=== PATIENT | male | born 1965 | race Caucasian/White ===

== ENCOUNTER 2017-11-08 06:05 | Inpatient (IN) | payer OTHER ==
[2017-11-03 11:08] VITALS: BMI 39.3
[2017-11-08] MEDS ORDERED: CEFAZOLIN 2 GM/D5W 2 GM/50 ML ML IVPB ONE (06:40)
[2017-11-08] MEDS ORDERED: oxyCODONE HCL 10 MG SUSTAINED ACTING TABLET PO STA (06:40)
[2017-11-08] MEDS ORDERED: oxyCODONE HCL 10 MG SUSTAINED ACTING TABLET ONE (06:49)
[2017-11-08] MEDS ORDERED: MIDAZOLAM HCL 2 MG/2 ML SINGLE DOSE VIAL ONE (07:06)
[2017-11-08] MEDS ORDERED: BUPIVACAINE HCL/PF (5 MG/ML) 30 ML VIAL IJ ONE (07:06)
[2017-11-08] MEDS ORDERED: BUPIVACAINE LIPOSOME/PF (EXPAREL) 266 MG/20 ML VIAL ONE (07:06)
[2017-11-08] MEDS ORDERED: THROMBIN (BOVINE) 5,000 UNIT VIAL TP ONE ×2 (07:09→08:33)
[2017-11-08] MEDS ORDERED: LIDOCAINE 1%/EPI 1:100000 (20 ML MULTI DOSE VIAL) ONE (07:09)
[2017-11-08] MEDS ORDERED: GUM MASTIC/STORAX/MSAL/ALCOHOL 1 DRP DROPSBTL MC ONE (07:10)
--- NOTE | 2017-11-08 07:26 | HP ---
History & Physical Update - History History: No Change - Physical Physical: No Change - Assessment Assessment: No Change - Plan Plan: No Change (H&P in chart from 11/05/2017)
[2017-11-08] MEDS ORDERED: LIDOCAINE 1%/EPI 1:100000 (50 ML MULTI DOSE VIAL) INF ONE (07:30)
[2017-11-08] MEDS ORDERED: PROPOFOL 20 ML ONE ×2 (07:58)
[2017-11-08] MEDS ORDERED: ceFAZolin SODIUM 1 GM VIAL ONE (07:58)
[2017-11-08] MEDS ORDERED: DEXAMETHASONE SOD PHOSPHATE 4 MG/1 ML VIAL ONE (07:58)
[2017-11-08] MEDS ORDERED: ONDANSETRON 4 MG/2 ML VIAL ONE (07:58)
[2017-11-08] MEDS ORDERED: GELATIN SPONGE,ABSORBABLE 1 GM PACKET TP ONE (08:34)
[2017-11-08] MEDS ORDERED: methylPREDNISolone ACET (DEPO) 40 MG/1 ML VIAL IM ONE (10:00)
[2017-11-08] MEDS ORDERED: oxyCODONE HCL 5 MG TABLET PO PRN (10:16)
[2017-11-08] MEDS ORDERED: ONDANSETRON 4 MG/2 ML VIAL IVPUSH PRN (10:19)
[2017-11-08] MEDS ORDERED: MECLIZINE HCL 25 MG TABLET (FP) PO PRN ×2 (10:22→10:25)
--- NOTE | 2017-11-08 10:28 | OP ---
Operative Note - Note: Operative Date: 11/08/17 Pre-Operative Diagnosis: L5-S1 spondylolisthesis Operation: posterior lumbar decompression/fusion/instrumentation, transformanial interbody fusion of L5-S1 with allograft and neuromonitoring Surgeon: Justin Francis Pot Annealer: Conchita Gibson Anesthesiologist/VICE PRESIDENT OF TALENT MANAGEMENT: Enriqueta Pascual Anesthesia: Spinal Estimated Blood Loss (mls): 50 Fluid Volume Replaced (mls): 1,000 Operative Report Dictated: Yes
--- NOTE | 2017-11-08 10:29 | SURG ---
Surgery Laundry Pricing Clerk Note Laundry Pricing Clerk: Conchita Gibson PA-C Date of Service: 11/08/17 Diagnosis: L5-S1 spondylolisthesis Procedure: posterior lumbar decompression/fusion/instrumentation, transformanial interbody fusion of L5-S1 with allograft and neuromonitoring I was present for the entirety of the operative procedure. For further detail, please refer to operative report. Visit type - Case Type Case Type: Scheduled - Emergency Emergency Visit: No - New patient This patient is new to me today: Yes Date on this admission: 11/08/17
[2017-11-08] MEDS ORDERED: ACETAMINOPHEN 325 MG TABLET (FP) PO SCH (10:30)
[2017-11-08] MEDS ORDERED: LACTATED RINGERS SOLUTION 1,000 ML IV SCH ×2 (10:30)
[2017-11-08] MEDS: diazePAM 2 MG TABLET PO SCH (14:10)
[2017-11-08] MEDS: oxyCODONE HCL 5 MG TABLET PO PRN ×2 (15:15→21:08)
[2017-11-08] MEDS: CEFAZOLIN 1 GM/D5W 1 GM/50 ML BAG IVPB SCH (16:00)
[2017-11-08] MEDS: ACETAMINOPHEN 325 MG TABLET (FP) PO SCH (18:13)
[2017-11-08] MEDS: traMADol HCL 50 MG TABLET PO SCH (18:13)
[2017-11-08] MEDS: DOCUSATE SODIUM 100 MG CAPSULE (FP) PO SCH (21:09)
--- NOTE | 2017-11-08 21:11 | OP ---
DATE OF OPERATION: 11/08/2017 PREOPERATIVE DIAGNOSIS: Spinal stenosis, L5-S1. POSTOPERATIVE DIAGNOSIS: Spinal stenosis, L5-S1. PROCEDURE PERFORMED: 1. Transforaminal lumbar interbody fusion, L5-S1. 2. Placement of instrumentation, L5-S1. 3. Revisional laminectomy. 4. Insertion of cage. SURGEON: Justin Francis MD CLINICAL PROGRAM MANAGER: MATT Bass ESTIMATED BLOOD LOSS: 50 mL INTRAVENOUS FLUIDS: Per Anesthesia. ANESTHESIA: Spinal/TLIP. COMPLICATIONS: None. DISPOSITION: Patient brought to the PACU in stable condition. INDICATION FOR SURGERY: The patient is a 52-year-old gentleman who had previously undergone a laminectomy. He had done well from the surgery until recently when he began to have pain from his back down his leg. X-rays and MRI were completed which noted that he had a spinal stenosis at L5-S1. He had a re-herniation at that level. He had gone through an exhaustive course of treatment for this which included medications, physical therapy, as well as injections. Unfortunately, his pain continued to persist despite all this. At this point, risks, benefits, and alternatives were discussed, and the patient consented to surgery. DESCRIPTION OF PROCEDURE: Patient was brought to the operating room by the anesthesia staff. After appropriate patient identification was performed, spinal anesthesia was given along with a TLIP block. Patient was able to position himself prone onto the OR table with all areas of bony prominences well padded at this time. The C-arm was brought in. The L5 and S1 pedicles were marked off. Next, 10 mL of lidocaine with epinephrine were injected into his back. At this time, his back was prepped and draped in a sterile manner. At this point, timeout was completed. Incisions were made bilaterally over the L5 and S1 pedicles. Dissection was carried down to the fascia. The fascia was split at this time. Under C-arm guidance, trocars were advanced into both the L5 and S1 pedicles. Through the trocars, wires were inserted. Over the wires, tap was performed and screws inserted. On the left-hand side, retractor blades were set up to expose the L5-S1 facet joint. This was confirmed with x-ray. The facet joint was removed with a flo and osteotome. The disk was entered. Using a series of pituitaries, Kerrisons, and curettes, the diskectomy was completed. Endplates were decorticated at this time. Bone graft was placed in. A cage filled with bone graft was placed in. Tulip pads were placed over the screws. Bj was measured and placed in. Caps were placed on. Compression and final tightening were performed. On the right-hand side, a bj was measured and placed in. Caps were placed on. Compression and final tightening were performed. All x-ray instrumentation was removed at this time. AP and lateral x-rays confirmed the instrumentation to be in good position. The fascia was closed with a No. 1 Vicryl suture. The subcutaneous tissue was closed with 2-0 Vicryl suture. Skin was closed with 3-0 Monocryl suture. Dermabond was applied. Steri-Strips were applied. A sterile dressing was applied. Patient was placed supine on the OR bed and brought to the PACU in stable condition. Gerson VITALE/[id number]
[2017-11-09] MEDS: traMADol HCL 50 MG TABLET PO SCH ×3 (00:14→12:33)
[2017-11-09] MEDS: ACETAMINOPHEN 325 MG TABLET (FP) PO SCH ×3 (00:14→12:33)
[2017-11-09] MEDS: CEFAZOLIN 1 GM/D5W 1 GM/50 ML BAG IVPB SCH (00:15)
[2017-11-09] MEDS: ONDANSETRON 4 MG/2 ML VIAL IVPUSH SCH ×3 (00:15→12:33)
[2017-11-09] MEDS: diazePAM 2 MG TABLET PO SCH (02:25)
[2017-11-09 06:49] VITALS: BP 118/73; PULSE 93; TEMP 97.8
--- NOTE | 2017-11-09 07:50 | DS ---
"Physical Exam: SUBJECTIVE: POD #1 L5-S1 decompression and fusion. Patient seen and examined at bedside with no complaints. Patient states he still has some b/l radicular pain in both legs but it is improved from his pre-op symptoms. He has been OOB to the bathroom and ambulating without assistance. He is tolerating his diet and denies any CP, SOB, N/V/D fever or chills OBJECTIVE: Vital Signs Period Temp Pulse Resp BP Sys/James Pulse Ox Last 24 Hr 97.8 F-98.8 F 78-104 16-19 107-121/58-75 94-100 PHYSICAL EXAM GENERAL: The patient is awake, alert, and fully oriented, in no acute distress. HEAD: Normal with no signs of trauma. EYES: sclera anicteric, conjunctiva clear. NECK: Trachea midline, LUNGS:Unlabored resp on RA, no wheezes, no crackles, no accessory muscle use. Lumbar spine: incisions c/d/i with steris in place, surrounding tissue intact with no tracking erythema, edema or collection. HEART: Regular rate and rhythm, S1, S2 without murmur, rub or gallop. EXTREMITIES: 2+ pulses, warm, well-perfused, no edema.with 5/5 strength on Dorsi /plantar flexion NEUROLOGICAL: Cranial nerves II through XII grossly intact. Normal speech, gait not observed. PSYCH: Normal mood, normal affect. SKIN: Warm, dry, normal turgor, no rashes or lesions noted. LABS HOSPITAL COURSE: Date of Admission:11/08/17 The patient was admitted to the Med-Surg Unit after decompression and fusion of L5-S1. Now, s/p L5-S1 fusion. The day of surgery, the patient ambulated the hallways with assistance. Narcotic and non-narcotic pain management control was achieved with an oral and IV approach. An xray was obtained and confirmed hardware placement at L5-S1, no fractures or dislocations. Mitra-operative IV ABX were administered. DVT prophylaxis was achieved with SCDs and early ambulation. The patient ambulated with Physical Therapy and no services were recommended upon discharge. Narcotic scripts and or muscle relaxants were checked with [place] [employer] prior to escibe. The discharge instructions and an oral pain management plan were reviewed with the patient. All questions answered. Above plan discussed with Dr. Francis and agreed. Date of Discharge: 11/09/17 Minutes to complete discharge: 25 Discharge Summary Condition: Good - Instructions Diet, Activity, Other Instructions: Regular diet as tolerated. No bending and or twisting at the waist. No lifting greater than 5 pounds. Follow-up with your surgeon in two weeks. Keep area clean and dry. May remove dressing in two (2) days and replace with clean gauze and occlusive dressing such as a tegaderm. NO BATHS. You may shower starting two (2) days after your surgery. When showering, leave the occlusive(plastic) dressing in place and change if it appears wet. Avoid direct water stream onto your incision. If you develop fever, drainage from your incision please call your surgeon. Follow-up Referred to following clinics/specialists for follow-up care: Justin Francis MD [facility]/[address], [place] [address] [phone] This report was requested by: Conchita Gibson | Reference #: [id number] Disposition: HOME - Home Medications Comprehensive Discharge Medication List: Ambulatory Orders Meclizine HCl 25 mg PO ASDIR PRN 11/03/17 Naproxen 500 mg PO DAILY PRN 11/03/17 Diazepam [Valium] 2 mg PO BID PRN #14 tablet MDD 2 11/08/17 Docusate Sodium [Colace -] 100 mg PO BID PRN #14 capsule 11/08/17 Hydrocodone/Acetaminophen [Vicodin 5-300 mg Tablet] 1 each PO Q4H PRN #30 tablet MDD 6 11/08/17 Problem List - Problems (1) Spondylolisthesis at L5-S1 level Assessment/Plan: POD #1 L5-S1 decompression and fusion doing well. 1) OOB as tolerated 2) DVT propylaxis 3) daily IS 4) d/c for home later today. 5) follow up with Dr Francis as scheduled Evaluation and plan discussed with Dr Francis Code(s): M43.17 - SPONDYLOLISTHESIS, LUMBOSACRAL REGION This patient is new to me today: Yes Date on this admission: 11/09/17 Emergency Visit: No Critical Care patient: No - Discharge Referral Referred to [facility] Med P.C.: No"
[2017-11-09 08:25] LABS: ANION GAP 5 (8-16); BLOOD UREA NITROGEN 12 mg/dl (7-18); CALCIUM 7.9 mg/dl (8.4-10.2); CHLORIDE 105 mmol/L (98-107); CO2 24 mmol/L (22-28); CREATININE 0.8 mg/dl (0.6-1.3); GLUCOSE,RANDOM 135 mg/dl (74-106); SODIUM 134 mmol/L (136-145)
[2017-11-09 08:28] LABS: HEMATOCRIT 35.1 % (35.4-49); HEMOGLOBIN 12.1 GM/dl (11.7-16.9); MCH 31.2 pg (25.7-33.7); MCHC 34.6 g/dl (32.0-35.9); MEAN CELL VOLUME 90.3 fl (80-96); MEAN PLT VOLUME 8.5 fl (7.5-11.1); PLATELET COUNT 210 K/MM3 (134-434); RBC 3.89 M/mm3 (4.00-5.60); RDW 12.3 % (11.9-15.9); WHITE BLOOD COUNT 12.6 K/mm3 (4.0-10.8)
[2017-11-09] MEDS: DOCUSATE SODIUM 100 MG CAPSULE (FP) PO SCH (10:05)
--- NOTE | 2017-11-09 10:05 | PN ---
Progress Note (short form) - Note Progress Note: 52M POD1 s/p L5-S1 POD1 under spinal anesthetic with b/l TLIPs. Pt doing well, states that pain is well controlled, and denies any anesthetic complications. AVSS. Motor and sensory function at baseline in bilateral lower extremities. Continue current regimen.
== END 2017-11-09 14:10 | disposition home or self-care (01) | DRG 304 ==
LOC: FM/S 06:05 → EDSTATUS 13:00
PROVIDERS: ADMIT Orthopaedic Surgery Orthopaedic Surgery of the Spine; ATTEND Orthopaedic Surgery Orthopaedic Surgery of the Spine
PROC: 4A10X4G Monitoring of Central Nervous Electrical Activity, Intraoperative, External Approach (ICD-10-PCS; 2017-11-08)
PROC: 0SG30AJ Fusion of Lumbosacral Joint with Interbody Fusion Device, Posterior Approach, Anterior Column, Open Approach (ICD-10-PCS; principal; 2017-11-08 07:30)
DX: M48.07 Spinal stenosis, lumbosacral region (principal)
CPT/HCPCS: 36415; 72100-TC-FY; 80048; 85027; 94760; 97116-GP; 97161-GP

== ENCOUNTER 2017-11-13 10:45 | Emergency (ER) | payer OTHER ==
[2017-11-13] MEDS ORDERED: diazePAM 2 MG TABLET PO ONE (10:57)
[2017-11-13] MEDS ORDERED: DOCUSATE SODIUM 100 MG CAPSULE (FP) PO ONE ×2 (10:57→11:04)
[2017-11-13] MEDS ORDERED: oxyCODONE HCL 5 MG TABLET PO ONE (10:57)
[2017-11-13 11:01] VITALS: BP 116/61; PULSE 96; TEMP 98.9; BMI 41.3
[2017-11-13] MEDS ORDERED: diazePAM 2 MG TABLET ONE (11:05)
--- NOTE | 2017-11-13 11:08 | PDOC ---
History of Present Illness - General Chief Complaint: Pain Stated Complaint: LEFT LEG PAIN Time Seen by Provider: 11/13/17 10:48 History Source: Patient, Family - History of Present Illness Initial Comments: 11/13/17 11:00 52yoM POD5 s/p spinal surgery presents w/ severe pain. Pt was DC'ed 11/10 and since then has had increasing pain requiremetns at home. Initially on vicodin 5/ 300mg 1 tab, now up to 2 tabs q4h. His pharmacy is refusing to fill more Rx sent by his surgeon because he used up the initial Rx too quickly. (Taking approx 4G APAP daily at current rate, 27 tabs over 48h). Also on diazepam at home. Prior to surgery,pt's pain was well controlled on Aleve. Pt advised no NSAIDs after surgery. no numbness/tingling to leg/perineum no bowel/bladder incontinence or retnetion no fevers no bleeding on dressing no localized surgical site pain, pain is all radicular down L leg. Past History - Past Medical History Allergies/Adverse Reactions: Allergies Allergy/AdvReac Type Severity Reaction Status Date / Time No Known Drug Allergies Allergy Verified 11/13/17 10:50 Home Medications: Ambulatory Orders Diazepam [Valium] 2 mg PO BID PRN #14 tablet MDD 2 11/08/17 Hydrocodone/Acetaminophen [Vicodin 5-300 mg Tablet] 1 each PO Q4H PRN #30 tablet MDD 6 11/08/17 Docusate Sodium [Colace -] 100 mg PO BID PRN #0 capsule 11/09/17 Meclizine HCl [Antivert -] 25 mg PO BID PRN tablet 11/09/17 Anemia: No Asthma: No Cancer: No Cardiac Disorders: No CVA: No COPD: No CHF: No Dementia: No Diabetes: No GI Disorders: No Disorders: No HTN: No Hypercholesterolemia: Yes (NOT ON MEDS) Liver Disease: No Seizures: No Thyroid Disease: No - Surgical History Abdominal Surgery: No Appendectomy: No Cardiac Surgery: No Cholecystectomy: No Lung Surgery: No Neurologic Surgery: No Orthopedic Surgery: Yes (LUMBAR LAMINECTOMY 2011) - Suicide/Smoking/Psychosocial Hx Smoking History: Never smoked Have you smoked in the past 12 months: No Hx Alcohol Use: Yes (SOCIALLY) Drug/Substance Use Hx: No Substance Use Type: Alcohol Hx Substance Use Treatment: No Review of Systems - Review of Systems All Other Systems: Reviewed and Negative *Physical Exam - Physical Exam Comments: 11/13/17 11:03 seated in wheelchair NAD, well appearing FROM toes/ankles b/l no swelling to leg, no ecchymosis to leg dressing c/d/i.Inicision w/ small amount of dried blood, clean, intact, steristrips still in place, no erythem, no fluctuanc, no purulence. neuro grossly intact, LL limited by pain A&O x 3. ED Treatment Course - Consult/PCP Case Discussed with Personal Care Physician Not on Staff:: Spoke w/ coverage for Dr. Francis. He will rx Percocet 10/325 to pharmacy to increase opiate component and maintain safe tylenol levels. Also OK to resume naproxen at home as pt is POD 6. Will follow closely as an outpatient. Medical Decision Making - Medical Decision Making 11/13/17 11:08 52yoM pOD5 s/p spinal surgery presnets w/ difficult to control radicular pain down L leg (same as pre-surgery) and pharmacy refusing to refill vicodin Rx likely 2/2 APAP content. - pain control w/ oxycodone and diazepam - discuss w/ Dr. Tito andrews DC w/ new Rx. 11/13/17 12:17 Pt feeling much better after oxy/toradol/valium. DC home, new Rx sent by or, continue to f/u w/ ortho as scheduled. *DC/Admit/Observation/Transfer Diagnosis at time of Disposition: Pain, Spondylolisthesis at L5-S1 level - Discharge Dispostion Disposition: HOME - Referrals - Patient Instructions Additional Instructions: Follow-up with your surgeon on thursday 11/16 as scheduled. Your medicationsd have been changed. Please STOP vicodin. Please START percocet 10/325mg tabs 1 tab every 4 hours. You may increase if neccessary after talking to your surgeon. Please START Aleve 2 tabs every 12 hours Continue diazepam as needed as previously prescribed. Return to ER for fever over 100.4, numbness or tingling to groin, loss of control over stool or urine. - Post Discharge Activity
[2017-11-13] MEDS ORDERED: KETOROLAC TROMETHAMINE 30 MG/1 ML VIAL IM ONE (11:17)
[2017-11-13] MEDS ORDERED: KETOROLAC TROMETHAMINE 30 MG/1 ML VIAL ONE (11:23)
== END 2017-11-13 13:10 | disposition home or self-care (01) ==
LOC: FER 10:45
PROC: 3E0233Z Introduction of Anti-inflammatory into Muscle, Percutaneous Approach (ICD-10-PCS; principal; 2017-11-13)
DX: M43.16 Spondylolisthesis, lumbar region (principal)
CPT/HCPCS: 99282-25

== ENCOUNTER 2017-11-22 21:23 | Inpatient (IN) | payer OTHER ==
--- NOTE | 2017-11-22 21:29 | PDOC ---
History of Present Illness - General History Source: Patient Exam Limitations: No Limitations - History of Present Illness Initial Comments: 11/22/17 22:39 The patient is 52 a year old male, with a significant PMH of hypercholesterolemia, who presents to the emergency department with s/p spinal fusion surgery of his lumbar spine approximately 2 weeks ago. The patient complains of back pain, fevers and chills that began today around 2 pm today. The patient states mild back pain relief after taking oxycodone but still has fevers and chill. He also mentions a decrease in appetite. The patient denies chest pain, shortness of breath, headache and dizziness. Denies nausea, vomit, diarrhea and constipation. Denies dysuria, frequency, urgency and hematuria. PAST MEDICAL HISTORY: Hypercholesterolemia PAST SURGICAL HISTORY: Lumbar laminectomy 2012 FAMILY HISTORY: no pertinent history SOCIAL HISTORY: Drinks alcohol socially but denies tobacco and alcohol use. MEDICATIONS: reviewed ALLERGIES: As per nursing notes Adult ROS General: +Fevers or chills. No weakness, no weight loss HEENT: No change in vision. No sore throat,. No ear pain CardioVascular: No chest pain or shortness of breath Respiratory:No cough, or wheezing. Gastrointestinal: no nausea, vomiting, diarrhea or constipation, No rectal bleeding Genitourinary: No dysuria, hematuria, or frequency Musculoskeletal: +Back pain Neurologic: No headache, vertigo, dizziness or loss of consciousness Psychiatric: nor depression Skin: No rashes or easy bruising Endocrine: no increased thirst or abnormal weight change Allergic: no skin or latex allergy All other systems reviewed and normal Adult Exam: General: Well-nourished well-developed individual, no acute distress HEENT: Throat: Normal, tonsils normal, no erythema or exudate Neck: Supple, no meningeal signs, no lymphadenopathy Eyes::Pupils equal reactive and round, extraocular motion intact Chest: Nontender to palpation Cardiac: S1-S2 normal, regular rate and rhythm, no murmurs rubs or gallops Respiratory: Lungs clear to auscultation bilateral Abdomen: Soft, nondistended, normal bowel sounds, nontender to palpation diffusely Back: +Paraspinal incision bilaterally. No evidence of dehiscence or discharge. Increase warmth and erythematous tenderness to palpation Extremities: Warm, dry, no cyanosis, clubbing, or edema Skin: +Increase warmth and erythematous to the back. Neuro: Alert and oriented x3, nonfocal exam, grossly intact, normal gait Psych: Normal mood and affect <Kristen Cunningham - Last Filed: 11/22/17 23:30> - General History Source: Patient Exam Limitations: No Limitations - History of Present Illness Initial Comments: 11/22/17 22:09 This is a 52-year-old male status post spinal fusion surgery of his lumbar spine approximately 2 weeks ago. Patient now comes in complaining of increased pain in the area and some fever and chills. On my exam he did have erythema with increased tenderness and warmth to the area. Sepsis protocol was initiated. And in addition to sepsis workup patient will also have a CT scan of the lumbar spine to rule out any collections 11/22/17 23:33 Patient's workup so shows a markedly elevated white count of 17,000 with a left shift. His CAT scan shows some fluid collection bilateral paraspinal area questionable abscess or infectious collection. Patient most likely will need an MRI to further define what that collection is. Patient will be admitted to an inpatient bed Antibiotics were started thank and Zosyn. Patient is hemodynamically stable Patient's neurosurgeon Dr. Francis was called at [phone]. The PA called back and discuss case with her.. Patient will be admitted to an inpatient bed under the hospitalist service with Dr. Taylor consultation 11/23/17 00:01 <Madelyn George I - Last Filed: 11/23/17 00:02> - General Chief Complaint: Pain, Acute Stated Complaint: FEVER, PAIN POST SPINAL FUSION SURGERY Time Seen by Provider: 11/22/17 21:26 Past History <Kristen Cunningham - Last Filed: 11/22/17 23:30> - Past Medical History Anemia: No Asthma: No Cancer: No Cardiac Disorders: No CVA: No COPD: No CHF: No Dementia: No Diabetes: No GI Disorders: No Disorders: No HTN: No Hypercholesterolemia: Yes (NOT ON MEDS) Liver Disease: No Seizures: No Thyroid Disease: No - Surgical History Abdominal Surgery: No Appendectomy: No Cardiac Surgery: No Cholecystectomy: No Lung Surgery: No Neurologic Surgery: No Orthopedic Surgery: Yes (LUMBAR LAMINECTOMY 2011) - Suicide/Smoking/Psychosocial Hx Smoking History: Never smoked Have you smoked in the past 12 months: No Hx Alcohol Use: Yes (SOCIALLY) Drug/Substance Use Hx: No Substance Use Type: Alcohol Hx Substance Use Treatment: No <Madelyn George I - Last Filed: 11/23/17 00:02> - Past Medical History Allergies/Adverse Reactions: Allergies Allergy/AdvReac Type Severity Reaction Status Date / Time No Known Drug Allergies Allergy Verified 11/22/17 21:25 Home Medications: Ambulatory Orders Hydrocodone/Acetaminophen [Vicodin 5-300 mg Tablet] 1 each PO Q4H PRN #30 tablet MDD 6 11/08/17 *Physical Exam - Vital Signs Last Vital Signs Temp Pulse Resp BP Pulse Ox 102.9 F H 122 H 20 131/78 97 11/22/17 21:30 11/22/17 21:30 11/22/17 21:30 11/22/17 21:30 11/22/17 21:30 <Kristen Cunningham - Last Filed: 11/22/17 23:30> Heart Score/ECG Review - ECG Impressions Comment:: 11/22/17 23:30 Sinus tachycardia. Otherwise Normal. Vent rate 106 bpm IA interval 132 ms QTQTc 360/478 ms 11/22/17 23:31 Documentation prepared by Kristen Cunningham, acting as medical office worker for Madelyn George MD. <Kristen Cunningham - Last Filed: 11/22/17 23:30> ED Treatment Course - LABORATORY CBC & Chemistry Diagram: 11/22/17 22:25 11/22/17 22:25 - Medications Given in the ED: ED Medications Discontinued Medications Generic Name Dose Route Start Last Admin Trade Name Freq PRN Reason Stop Dose Admin Acetaminophen 1,000 mg 11/22/17 21:33 11/22/17 22:10 Ofirmev Injection - IVPB 11/22/17 21:34 1,000 mg ONCE ONE Administration Sodium Chloride 1,000 mls @ 1,000 mls/hr 11/22/17 21:30 11/22/17 22:00 Normal Saline - IV 11/22/17 22:29 1,000 mls/hr ASDIR STA Administration <Kristen Cunningham - Last Filed: 11/22/17 23:30> - LABORATORY CBC & Chemistry Diagram: 11/22/17 22:25 11/22/17 22:25 <Madelyn George I - Last Filed: 11/23/17 00:02> *DC/Admit/Observation/Transfer - Attestations Scribe Attestion: 11/22/17 22:40 Documentation prepared by Kristen Cunningham, acting as medical office worker for Madelyn George MD. <Kristen Cunningham - Last Filed: 11/22/17 23:30> - Discharge Dispostion Decision to Admit order: Yes <Madelyn George I - Last Filed: 11/23/17 00:02> Diagnosis at time of Disposition: Cellulitis of back Post op infection Qualifiers: Encounter type: initial encounter Qualified Code(s): T81.4XXA - Infection following a procedure, initial encounter - Discharge Dispostion Condition at time of disposition: Stable
[2017-11-22] MEDS ORDERED: SODIUM CHLORIDE 1,000 ML IV STA (21:30)
[2017-11-22] MEDS ORDERED: ACETAMINOPHEN 1000 MG/100 ML VIAL (NON FORMULARY) IVPB ONE (21:33)
[2017-11-22] MEDS ORDERED: ACETAMINOPHEN INJECTION 100 ML IVPB ONE (22:04)
[2017-11-22 22:42] LABS: BASO % 0.5 % (0-2.0); EOS % 0.8 % (0-4.5); HEMATOCRIT 35.4 % (35.4-49); HEMOGLOBIN 12.3 GM/dl (11.7-16.9); LYMPH % 4.9 % (8-40); MCH 31.4 pg (25.7-33.7); MCHC 34.7 g/dl (32.0-35.9); MEAN CELL VOLUME 90.3 fl (80-96); MEAN PLT VOLUME 7.9 fl (7.5-11.1); MONO % 7.5 % (3.8-10.2); NEUT % 86.3 % (42.8-82.8); PLATELET COUNT 323 K/MM3 (134-434); RBC 3.92 M/mm3 (4.00-5.60); RDW 12.2 % (11.9-15.9); WHITE BLOOD COUNT 17.3 K/mm3 (4.0-10.8)
[2017-11-22 22:49] LABS: ACTIVATED PTT 30.8 SECONDS (25.2-36.5)
[2017-11-22 22:58] LABS: INR 1.24 (0.82-1.09); PROTHROMBIN TIME (PATIENT) 13.8 SEC (10.2-13.0)
[2017-11-22 23:09] LABS: URINE APPEARANCE Clear; URINE BILIRUBIN Negative (NEGATIVE); URINE COLOR Yellow; URINE GLUCOSE (UA) Negative (NEGATIVE); URINE KETONE Negative (NEGATIVE); URINE LEUK ESTERASE Negative (NEGATIVE); URINE NITRITE Negative (NEGATIVE); URINE PROTEIN Trace (NEGATIVE); URINE UROBILINOGEN 0.2 (0.2-1.0)
[2017-11-22 23:10] LABS: ALK PHOS 89 U/L (32-92); ANION GAP 8 (8-16); BILIRUBIN,TOTAL 0.9 mg/dl (0.2-1.0); BLOOD UREA NITROGEN 12 mg/dl (7-18); CALCIUM 8.5 mg/dl (8.4-10.2); CHLORIDE 100 mmol/L (98-107); CO2 24 mmol/L (22-28); CREATININE 0.8 mg/dl (0.6-1.3); GLUCOSE,RANDOM 120 mg/dl (74-106); POTASSIUM 3.9 mmol/L (3.5-5.1); SGOT/AST 46 U/L (10-42); SGPT/ALT 59 U/L (10-40); SODIUM 132 mmol/L (136-145); TOT PROT 6.9 g/dl (6.4-8.3)
[2017-11-22] MEDS ORDERED: VANCOMYCIN 1 GRAM (PRE-DOCKED) 1,000 MG/250 ML BAG IVPB ONE (23:15)
[2017-11-22] MEDS ORDERED: PIPERACILLIN/TAZOB 3.375 GM 3.375 GM in DEXTROSE 5%-WATER - 50 ML IVPB ONE (23:16)
[2017-11-22] MEDS ORDERED: PIPERACILLIN/TAZOBACTAM 3.375 GM VIAL IVPB ONE (23:23)
[2017-11-22] MEDS ORDERED: VANCOMYCIN 1,000 MG VIAL (RESTRICTED TO ID ONLY) ONE (23:23)
[2017-11-23] MEDS ORDERED: morphine SULFATE 4 MG/ML VIAL IVPUSH PRN (01:30)
[2017-11-23] MEDS ORDERED: ACETAMINOPHEN 325 MG TABLET (FP) PO PRN (01:31)
--- NOTE | 2017-11-23 01:33 | HP ---
CHIEF COMPLAINT: Back Pain, Fever, Chills PCP: HISTORY OF PRESENT ILLNESS: The patient is 52 a year old male, with a significant PMH of hypercholesterolemia, who presents to the emergency department with s/p spinal fusion surgery of his lumbar spine approximately 2 weeks ago. Patient's reports that the patient was having back pain, subjective fever 103.9 at home with chills earlier in the day. She reports noting increased hardness, and redness to surgical site while changing the dressing. The reports that her husbands pain became so bad that the medication was not working. Patient denies cough, SOB, CP, AP, N/V/D, constipation, dysuria. ER course was notable for: (1) Sepsis- T max 102.9, P 122 WBC 17.3 (2) (3) Recent Travel: None PAST MEDICAL HISTORY: Hypercholesterolemia PAST SURGICAL HISTORY: Lumbar Laminectomy 2011 Social History: Smoking: Denies Alcohol: Socially Drugs: Denies Lives with spouse Family History: Non-contributory Allergies No Known Drug Allergies Allergy (Verified 11/22/17 21:25) HOME MEDICATIONS: Home Medications Medication Instructions Recorded Hydrocodone/Acetaminophen [Vicodin 1 each PO Q4H PRN #30 tablet MDD 6 11/08/17 5-300 mg Tablet] REVIEW OF SYSTEMS CONSTITUTIONAL: fever, chills, Absent: diaphoresis, generalized weakness, malaise, loss of appetite, weight change HEENT: Absent: rhinorrhea, nasal congestion, throat pain, throat swelling, difficulty swallowing, mouth swelling, ear pain, eye pain, visual changes CARDIOVASCULAR: Absent: chest pain, syncope, palpitations, irregular heart rate, lightheadedness , peripheral edema RESPIRATORY: Absent: cough, shortness of breath, dyspnea with exertion, orthopnea, wheezing, stridor, hemoptysis GASTROINTESTINAL: Absent: abdominal pain, abdominal distension, nausea, vomiting, diarrhea, constipation, melena, hematochezia GENITOURINARY: Absent: dysuria, frequency, urgency, hesitancy, hematuria, flank pain, genital pain MUSCULOSKELETAL: back pain Absent: myalgia, arthralgia, joint swelling, neck pain SKIN: swelling, hardness, redness to surgical site Absent: rash, itching, pallor HEMATOLOGIC/IMMUNOLOGIC: Absent: easy bleeding, easy bruising, lymphadenopathy, frequent infections ENDOCRINE: Absent: unexplained weight gain, unexplained weight loss, heat intolerance, cold intolerance NEUROLOGIC: Absent: headache, focal weakness or paresthesias, dizziness, unsteady gait, seizure, mental status changes, bladder or bowel incontinence PSYCHIATRIC: Absent: anxiety, depression, suicidal or homicidal ideation, hallucinations. PHYSICAL EXAMINATION Vital Signs - 24 hr 11/22/17 11/22/17 21:30 23:54 Temperature 102.9 F H 100 F H Pulse Rate 122 H Respiratory 20 Rate Blood Pressure 131/78 O2 Sat by Pulse 97 Oximetry (%) GENERAL: Awake, alert, and fully oriented, in no mild distress. HEAD: Normal with no signs of trauma. EYES: Pupils equal, round and reactive to light, extraocular movements intact, sclera anicteric, conjunctiva clear. No lid lag. EARS, NOSE, THROAT: Ears normal, nares patent, oropharynx clear without exudates. Moist mucous membranes. NECK: Normal range of motion, supple without lymphadenopathy, JVD, or masses. LUNGS: Breath sounds equal, clear to auscultation bilaterally. No wheezes, and no crackles. No accessory muscle use. HEART: Regular rate and rhythm, normal S1 and S2 without murmur, rub or gallop. ABDOMEN: Soft, nontender, not distended, normoactive bowel sounds, no guarding, no rebound, no masses. No hepatomegaly or splenomegaly. MUSCULOSKELETAL: Normal range of motion at all joints. No bony deformities or mid to lower lumbar tenderness. No CVA tenderness. UPPER EXTREMITIES: 2+ pulses, warm, well-perfused. No cyanosis. No clubbing. No peripheral edema. LOWER EXTREMITIES: 2+ pulses, warm, well-perfused. No calf tenderness. No peripheral edema. NEUROLOGICAL: Cranial nerves II-XII intact. Normal speech. Gait not observed. PSYCHIATRIC: Cooperative. Good eye contact. Appropriate mood and affect. SKIN: Warm, dry, normal turgor, no rashes. lower lumbar erythema, induration no fluctuance, no purulent drainage noted normal capillary refill. Laboratory Results - last 24 hr 11/22/17 11/22/17 11/22/17 22:20 22:25 22:25 WBC 17.3 H RBC 3.92 L Hgb 12.3 Hct 35.4 MCV 90.3 MCH 31.4 MCHC 34.7 RDW 12.2 Plt Count 323 D MPV 7.9 Absolute Neuts (auto) 15.0 Neutrophils % 86.3 H Lymphocytes % 4.9 L Monocytes % 7.5 Eosinophils % 0.8 Basophils % 0.5 PT with INR 13.8 H INR 1.24 H PTT (Actin FS) 30.8 Sodium Potassium Chloride Carbon Dioxide Anion Gap BUN Creatinine Creat Clearance w eGFR Random Glucose Lactic Acid Calcium Total Bilirubin AST ALT Alkaline Phosphatase Total Protein Albumin Urine Color Yellow Urine Appearance Clear Urine pH 8.0 Ur Specific [place] 1.015 Urine Protein Trace Urine Glucose (UA) Negative Urine Ketones Negative Urine Blood Negative Urine Nitrite Negative Urine Bilirubin Negative Urine Urobilinogen 0.2 Ur Leukocyte Esterase Negative 11/22/17 11/22/17 22:25 22:25 WBC RBC Hgb Hct MCV MCH MCHC RDW Plt Count MPV Absolute Neuts (auto) Neutrophils % Lymphocytes % Monocytes % Eosinophils % Basophils % PT with INR INR PTT (Actin FS) Sodium 132 L Potassium 3.9 Chloride 100 Carbon Dioxide 24 Anion Gap 8 BUN 12 Creatinine 0.8 Creat Clearance w eGFR > 60 Random Glucose 120 H Lactic Acid 1.9 Calcium 8.5 Total Bilirubin 0.9 AST 46 H ALT 59 H Alkaline Phosphatase 89 Total Protein 6.9 Albumin 4.0 Urine Color Urine Appearance Urine pH Ur Specific [place] Urine Protein Urine Glucose (UA) Urine Ketones Urine Blood Urine Nitrite Urine Bilirubin Urine Urobilinogen Ur Leukocyte Esterase ASSESSMENT/PLAN: 52 y/o man Admitted for Sepsis secondary to Cellulitis of Lower Back, Post OP Complication for further evaluation of their emergent condition, Plan: 1. ID Sepsis, Cellulitis of Lower Back Sepsis Criteriua Met: T Max 102.9, P 122 WBC 17.3 Likely due to Post OP Complication Blood Cultures pending Appreciate ID consult Continue Vancomycin and Zosyn Monitor CBC, BMP Monitor vitals IVF Tylenol prn Morphine Sulfate prn 2. Hypercholesterolemia Stable Continue home med FEN IVF Replete lytes prn NPO DVT ppx SCDs Heparin SQ Code Status: Full Code Dispo: Requires Inpatient Care Problem List - Problem (1) Sepsis Code(s): A41.9 - SEPSIS, UNSPECIFIED ORGANISM (2) Cellulitis of back Assessment/Plan: - Likely secondary to post- op - Blood cultures pending - Code(s): L03.312 - CELLULITIS OF BACK [ANY PART EXCEPT BUTTOCK] (3) Pain Code(s): R52 - PAIN, UNSPECIFIED (4) Complication, postoperative infection Code(s): T81.4XXA - INFECTION FOLLOWING A PROCEDURE, INITIAL ENCOUNTER Visit type - Emergency Visit Emergency Visit: Yes ED Registration Date: 11/22/17 Care time: The patient presented to the Emergency Department on the above date and was hospitalized for further evaluation of their emergent condition. - New Patient This patient is new to me today: Yes Date on this admission: 11/23/17 - Critical Care Critical Care patient: No Hospitalist Screening - Colonoscopy Questionnaire Colonoscopy Questionnaire: Colonoscopy Questionnaire - Patient: 50 - 75 years old and never had a screening colonoscopy: No History of colon or rectal polyps, or CA: No History of IBD, Crohn's disease or UC: No History of abdominal radiation therapy as a child: No - Relative: 1 with colon or rectal CA, or polyps at age 60 or younger: No Colon or rectal CA diagnosed at age 45 or younger: No Multiple relatives with colon or rectal CA: No - Outcome: Screening Result: Negative Screen
[2017-11-23 08:12] LABS: BASO % 0.4 % (0-2.0); EOS % 0.9 % (0-4.5); HEMATOCRIT 32.7 % (35.4-49); HEMOGLOBIN 11.8 GM/dl (11.7-16.9); LYMPH % 7.6 % (8-40); MCH 32.7 pg (25.7-33.7); MEAN CELL VOLUME 90.8 fl (80-96); MEAN PLT VOLUME 7.9 fl (7.5-11.1); MONO % 11.9 % (3.8-10.2); NEUT % 79.2 % (42.8-82.8); PLATELET COUNT 277 K/MM3 (134-434); RDW 12.4 % (11.9-15.9); WHITE BLOOD COUNT 16.7 K/mm3 (4.0-10.8)
[2017-11-23 08:21] LABS: ANION GAP 6 (8-16); BLOOD UREA NITROGEN 12 mg/dl (7-18); CALCIUM 8.2 mg/dl (8.4-10.2); CHLORIDE 102 mmol/L (98-107); CO2 25 mmol/L (22-28); CREATININE 0.7 mg/dl (0.6-1.3); GLUCOSE,RANDOM 147 mg/dl (74-106); POTASSIUM 3.9 mmol/L (3.5-5.1); SODIUM 133 mmol/L (136-145)
--- NOTE | 2017-11-23 08:25 | CONSULT ---
Addendum entered and electronically signed by Hola Reeder PA 11/23/17 09:00: Physical exam: Negative Brudzinksi or Kerning sign Original Note: <Hola Reeder - Last Filed: 11/23/17 08:55> - Consultation REQUESTING PROVIDER: Justin Francis CONSULT REQUEST: We have been asked to surgically evaluate this patient for LEWIS, low back pain, discharge from incision & fever PCP: Onelia Abbott NP HPI: Called to eval 52yo male well known to [facility] as we recently operated on him 11/08/17 --> s/p posterior lumbar decompression/fusion/ instrumentation, transformanial interbody fusion of L5-S1 with allograft and neuromonitoring. Patient was discharged home without any incident. Per patient and , he developed low back pain while at home and returned to [facility] on 11/13/17 where he was seen/evaluated and prescribed hydrocodone 10/300. States he followed-up with Dr. Francis in his office on . At home wihile doing dressing changes, noticed that the left incision looks red and draining a lot of fluid (described as serosanguinous). tells me he developed a fever of 103.9F (subjective) at home two days ago. He is voiding spontaneously. Tolerating PO diet. Ambulating. Also c/o of frequent headaches. Currently 3/10...at it's worst 7/10. While in the ER, he was started on Zosyn and Vanco. Lumbar CT results noted. Denies n/v/d, CP, SOB, photophobia, dysuria, neck pain, focal weakness, paresthesias, dizziness, seizure, mental status changes, bladder or bowel incontinence. PMHx: Hypercholesterolemia PSHx: Laminectomy 2011. L5/S1 PLIF 11/08/17 Home Meds: Vicodin 5-300. Take 1 tablet Q4-6H PRN Allergies: NKDA ROS: CONSTITUTIONAL: Absent: diaphoresis, generalized weakness, malaise, weight change CARDIOVASCULAR: Absent: syncope, palpitations, irregular heart rate, lightheadedness, peripheral edema RESPIRATORY: Absent: dyspnea with exertion, wheezing, stridor, hemoptysis GASTROINTESTINAL:Absent: abd pain, abdominal distension, , constipation, melena , hematochezia GENITOURINARY: Absent: dysuria, frequency, urgency, hesitancy, hematuria, flank pain, genital pain MUSCULOSKELETAL: Absent: myalgia, arthralgia, joint swelling, SKIN: Absent: rash, itching, pallor HEMATOLOGIC/IMMUNOLOGIC: Absent: easy bleeding, easy bruising, lymphadenopathy NEUROLOGIC: Absent: see hpi PSYCHIATRIC: Absent: anxiety, depression, suicidal or homicidal ideation, hallucinations. PE: GENERAL: Awake, alert, and fully oriented, in no acute distress. HEAD: Normal with no signs of trauma. EYES: PERRL, sclera anicteric, conjunctiva clear. NECK: Normal ROM, supple without lymphadenopathy, JVD, or masses. LUNGS: Clear to auscultation bilat anteriorly. No wheezes, and no crackles. No accessory muscle use. HEART: Regular rate and rhythm. No murmurs ABDOMEN: Soft, nontender, not distended, normoactive bowel sounds, no guarding, no rebound, no masses. No organomegaly. MUSCULOSKELETAL: Normal ROM at all joints. No bony deformities or tenderness. No CVA tenderness. UE: 2+ pulses, warm, well-perfused. No cyanosis. Cap refill <2 seconds. No peripheral edema. LE: 2+ pulses, warm, well-perfused. No calf tenderness. No peripheral edema. NEUROLOGICAL: Normal speech, gait not observed. PSYCH: Cooperative. Good eye contact. Appropriate mood and affect. SKIN: Lumbar incisions x2 --> right incision healed and no signs of infection. Left incision has periwound erythema. No discharged expressed. No fluctuance or edema noted. Vital Signs Temperature 98.9 F 11/23/17 06:56 Pulse Rate 97 H 11/23/17 06:56 Respiratory Rate 19 11/23/17 06:56 Blood Pressure 109/52 11/23/17 06:56 O2 Sat by Pulse Oximetry (%) 98 11/23/17 06:56 CBC, BMP 11/23/17 07:15 11/23/17 07:15 INR, PTT INR 1.24 (0.82-1.09) H 11/22/17 22:25 Problem List - Problems (1) Cellulitis of back Assessment/Plan: Per Dr. Francis, Ramses Dawn and ID Consult Started on Ancef 2gm IVPB Q8H Tylenol for fever > 100.3F f/u MRI Lumbar spine with contrast Cont OOB and ambulate f/u Blood cultures Surgery Team to cont to monitor closely Above plan discussed with Dr. Francis and agrees. Code(s): L03.312 - CELLULITIS OF BACK [ANY PART EXCEPT BUTTOCK] (2) Spondylolisthesis at L5-S1 level Assessment/Plan: s/p L5/S1 PLIF 11/08/17 Code(s): M43.17 - SPONDYLOLISTHESIS, LUMBOSACRAL REGION Visit type - Case Type Case Type: ED Admission - Emergency Emergency Visit: Yes ED Registration Date: 11/22/17 Care time: The patient presented to the Emergency Department on the above date and was hospitalized for further evaluation of their emergent condition. - New patient This patient is new to me today: Yes Date on this admission: 11/23/17 <Justin Francis - Last Filed: 11/25/17 16:40> - Consultation REQUESTING PROVIDER: CONSULT REQUEST: We have been asked to surgically evaluate this patient for ( specify). PCP:Silvia Rubi HISTORY OF PRESENT ILLNESS: PMHx: PSHx: Home Medications Medication Instructions Recorded Hydrocodone/Acetaminophen [Vicodin 1 each PO Q4H PRN #30 tablet MDD 6 11/08/17 5-300 mg Tablet] Allergies Allergy/AdvReac Type Severity Reaction Status Date / Time No Known Drug Allergies Allergy Verified 11/22/17 21:25 REVIEW OF SYSTEMS: CONSTITUTIONAL: Absent: fever, chills, diaphoresis, generalized weakness, malaise, loss of appetite, weight change CARDIOVASCULAR: Absent: chest pain, syncope, palpitations, irregular heart rate, lightheadedness , peripheral edema RESPIRATORY: Absent: cough, shortness of breath, dyspnea with exertion, wheezing, stridor, hemoptysis GASTROINTESTINAL: Absent: abdominal pain, abdominal distension, nausea, vomiting, diarrhea, constipation, melena, hematochezia GENITOURINARY: Absent: dysuria, frequency, urgency, hesitancy, hematuria, flank pain, genital pain MUSCULOSKELETAL: Absent: myalgia, arthralgia, joint swelling, back pain, neck pain SKIN: Absent: rash, itching, pallor HEMATOLOGIC/IMMUNOLOGIC: Absent: easy bleeding, easy bruising, lymphadenopathy NEUROLOGIC: Absent: headache, focal weakness, paresthesias, dizziness, unsteady gait, seizure, mental status changes, bladder or bowel incontinence PSYCHIATRIC: Absent: anxiety, depression, suicidal or homicidal ideation, hallucinations. PHYSICAL EXAM: GENERAL: Awake, alert, and fully oriented, in no acute distress. HEAD: Normal with no signs of trauma. EYES: PERRL, sclera anicteric, conjunctiva clear. NECK: Normal ROM, supple without lymphadenopathy, JVD, or masses. LUNGS: Clear to auscultation bilat anteriorly. No wheezes, and no crackles. No accessory muscle use. HEART: Regular rate and rhythm. No murmurs ABDOMEN: Soft, nontender, not distended, normoactive bowel sounds, no guarding, no rebound, no masses. No organomegaly. MUSCULOSKELETAL: Normal ROM at all joints. No bony deformities or tenderness. No CVA tenderness. UPPER EXTREMITIES: 2+ pulses, warm, well-perfused. No cyanosis. Cap refill <2 seconds. No peripheral edema. LOWER EXTREMITIES: 2+ pulses, warm, well-perfused. No calf tenderness. No peripheral edema. NEUROLOGICAL: Normal speech, gait not observed. PSYCH: Cooperative. Good eye contact. Appropriate mood and affect. SKIN: Warm, dry, normal turgor, no rashes or lesions noted. Vital Signs Temperature 98.8 F 11/25/17 10:24 Pulse Rate 88 11/25/17 12:00 Respiratory Rate 16 11/25/17 12:00 Blood Pressure 99/64 11/25/17 12:00 O2 Sat by Pulse Oximetry (%) 100 11/25/17 09:00 Lab Results WBC 8.0 K/mm3 (4.0-10.0) 11/25/17 05:30 RBC 3.51 M/mm3 (4.00-5.60) L 11/25/17 05:30 Hgb 10.9 GM/dL (11.7-16.9) L 11/25/17 05:30 Hct 31.6 % (35.4-49) L 11/25/17 05:30 MCV 90.2 fl (80-96) 11/25/17 05:30 MCHC 34.5 g/dl (32.0-35.9) 11/25/17 05:30 RDW 12.8 % (11.9-15.9) 11/25/17 05:30 Plt Count 272 K/MM3 (134-434) 11/25/17 05:30 Sodium 146 mmol/L (136-145) H 11/25/17 05:30 Potassium 4.1 mmol/L (3.5-5.1) 11/25/17 05:30 Chloride 113 mmol/L (98-107) H 11/25/17 05:30 Carbon Dioxide 23 mmol/L (21-32) 11/25/17 05:30 Anion Gap 10 MMOL/L (8-16) 11/25/17 05:30 BUN 12 mg/dL (7-18) 11/25/17 05:30 Creatinine 0.6 mg/dL (0.7-1.3) L 11/25/17 05:30 Random Glucose 108 mg/dL (74-106) H 11/25/17 05:30 Calcium 7.8 mg/dL (8.5-10.1) L 11/25/17 05:30 INR 1.24 (0.83-1.09) H 11/24/17 05:30 Patient seen and examined Agree with above Patient well known to our service Under sterile technique left side was aspirated 30 cc of fluid removed - old hematoma, no pus Will continue with abx for now
[2017-11-23] MEDS ORDERED: PATIENT'S OWN MEDICATION (NON-FORMULARY) (Hydrocodone/Acetaminophen [Vicodin 5-300 Mg Tabl PO PRN (08:52)
[2017-11-23] MEDS ORDERED: PIPERACILLIN/TAZOB 3.375 GM 3.375 GM in DEXTROSE 5%-WATER - 50 ML IVPB ONE (09:00)
[2017-11-23] MEDS ORDERED: HEPARIN NA (PORCINE) 5,000 UNITS/ML 1ML VIAL SQ SCH (10:00)
[2017-11-23] MEDS ORDERED: PIPERACILLIN/TAZOB 3.375 GM 3.375 GM in DEXTROSE 5%-WATER - 50 ML IVPB SCH ×2 (10:00→18:00)
[2017-11-23] MEDS ORDERED: CEFAZOLIN 2 GM/D5W 2 GM/50 ML ML IVPB SCH (10:00)
[2017-11-23] MEDS ORDERED: VANCOMYCIN 1,000 MG in DEXTROSE 5%-WATER - 250 ML IVPB SCH (12:00)
[2017-11-23] MEDS ORDERED: VANCOMYCIN 1,000 MG in DEXTROSE 5%-WATER - 250 ML IVPB ONE (12:00)
[2017-11-23] MEDS ORDERED: SODIUM CHLORIDE 1,000 ML IV STA ×2 (12:24→13:51)
--- NOTE | 2017-11-23 12:36 | PN ---
Physical Exam: SUBJECTIVE: Patient seen and examined at bedside. present. Additional history obtained: Per patient had continuous drainage from the left incision site from the time of initial discharge on 11/09 until 11/21. She describes the drainage as thin and bloody. On 11/21 she noted the drainage stopped. On 11/22 she noticed a "bump " had formed under the incision. On 11/23, the patient developed shaking chills and then a high fever and she brought him to the ED. She has not observed any drainage from the right incision site. OBJECTIVE: Vital Signs Period Temp Pulse Resp BP Sys/James Pulse Ox Last 24 Hr 98.7 F-102.9 F 94-122 38 109-131/52-78 97-100 GENERAL: The patient is awake, alert, and fully oriented. He is ill-appearing. LUNGS: CTA HEART: Regular rate and rhythm, S1, S2 ABDOMEN: Soft, nontender, nondistended EXTREMITIES: 2+ pulses, warm, well-perfused, no edema. BACK: Two healing vertical surgical incisions at lower spine to the right and left of midline. The left incision is erythematous and warm to touch, no drainage, surrounding 10cm x 10cm area of induration. The right incision has no erythema, no drainage, no induration. NEUROLOGICAL: Cranial nerves II through XII grossly intact. Normal speech, gait not observed. Laboratory Results - last 24 hr 11/22/17 11/22/17 11/22/17 22:20 22:25 22:25 WBC 17.3 H RBC 3.92 L Hgb 12.3 Hct 35.4 MCV 90.3 MCH 31.4 MCHC 34.7 RDW 12.2 Plt Count 323 D MPV 7.9 Absolute Neuts (auto) 15.0 Neutrophils % 86.3 H Lymphocytes % 4.9 L Monocytes % 7.5 Eosinophils % 0.8 Basophils % 0.5 PT with INR 13.8 H INR 1.24 H PTT (Actin FS) 30.8 Sodium Potassium Chloride Carbon Dioxide Anion Gap BUN Creatinine Creat Clearance w eGFR Random Glucose Lactic Acid Calcium Total Bilirubin AST ALT Alkaline Phosphatase Total Protein Albumin Urine Color Yellow Urine Appearance Clear Urine pH 8.0 Ur Specific [place] 1.015 Urine Protein Trace Urine Glucose (UA) Negative Urine Ketones Negative Urine Blood Negative Urine Nitrite Negative Urine Bilirubin Negative Urine Urobilinogen 0.2 Ur Leukocyte Esterase Negative 11/22/17 11/22/17 11/23/17 22:25 22:25 07:15 WBC 16.7 H RBC 3.60 L Hgb 11.8 Hct 32.7 L MCV 90.8 MCH 32.7 MCHC 36.0 H RDW 12.4 Plt Count 277 MPV 7.9 Absolute Neuts (auto) 13.1 Neutrophils % 79.2 Lymphocytes % 7.6 L D Monocytes % 11.9 H Eosinophils % 0.9 Basophils % 0.4 PT with INR INR PTT (Actin FS) Sodium 132 L Potassium 3.9 Chloride 100 Carbon Dioxide 24 Anion Gap 8 BUN 12 Creatinine 0.8 Creat Clearance w eGFR > 60 Random Glucose 120 H Lactic Acid 1.9 Calcium 8.5 Total Bilirubin 0.9 AST 46 H ALT 59 H Alkaline Phosphatase 89 Total Protein 6.9 Albumin 4.0 Urine Color Urine Appearance Urine pH Ur Specific [place] Urine Protein Urine Glucose (UA) Urine Ketones Urine Blood Urine Nitrite Urine Bilirubin Urine Urobilinogen Ur Leukocyte Esterase 11/23/17 07:15 WBC RBC Hgb Hct MCV MCH MCHC RDW Plt Count MPV Absolute Neuts (auto) Neutrophils % Lymphocytes % Monocytes % Eosinophils % Basophils % PT with INR INR PTT (Actin FS) Sodium 133 L Potassium 3.9 Chloride 102 Carbon Dioxide 25 Anion Gap 6 L BUN 12 Creatinine 0.7 Creat Clearance w eGFR > 60 Random Glucose 147 H D Lactic Acid Calcium 8.2 L Total Bilirubin AST ALT Alkaline Phosphatase Total Protein Albumin Urine Color Urine Appearance Urine pH Ur Specific [place] Urine Protein Urine Glucose (UA) Urine Ketones Urine Blood Urine Nitrite Urine Bilirubin Urine Urobilinogen Ur Leukocyte Esterase Active Medications Generic Name Dose Route Start Last Admin Trade Name Lynnette PRN Reason Stop Dose Admin Acetaminophen 650 mg 11/23/17 01:31 Tylenol - PO Q6H PRN FEVER Heparin Sodium (Porcine) 5,000 unit 11/23/17 10:00 11/23/17 09:39 Heparin - SQ 5,000 unit BID VALENTIN Administration Sodium Chloride 1,000 mls @ 1,000 mls/hr 11/23/17 12:24 Normal Saline - IV 11/23/17 13:23 ASDIR STA Vancomycin HCl 1,500 mg/ 250 mls @ 166.667 mls/hr 11/23/17 12:30 Dextrose IVPB Q12H [facility] Protocol Piperacillin Sod/Tazobactam 50 mls @ 100 mls/hr 11/23/17 18:00 Sod 3.375 gm/ Dextrose IVPB Q8H-IV VALENTIN Protocol Piperacillin Sod/Tazobactam Sod 3.375 gm in 50 mls @ 100 mls/hr 11/23/17 13: 00 Zosyn 3.375gm Ivpb (Pre-Docked) IVPB 11/23/17 13:29 ONCE ONE Protocol Morphine Sulfate 4 mg 11/23/17 01:30 11/23/17 07:47 Morphine Sulfate IVPUSH 4 mg Q6H PRN Administration PAIN LEVEL 7 - 10 Non-Formulary Medication 1 each 11/23/17 08:52 Hydrocodone/Acetaminophen [Vicodin 5-300 Mg Tablet] PO Q4H PRN PAIN ASSESSMENT/PLAN 52 year-old male with a PMH significant for HLD and L5-S1 spondylolisthesis s/p L5-S1 decompression/fusion/instrumentation on 11/08/17. Admitted for severe sepsis likely secondary to post-operative infection. Severe sepsis likely secondary to postoperative infection --T102.9, WBC 16.7k, p122, lactic acid 3.3 --left surgical incision red, hot, indurated --CT: bilateral posterior superficial tubular-like collections consistent with serosanguinous fluid L3->S1; cannot r/o superimposed infection; need MRI --cbc, cmp, Mg, esr, crp pending --repeat lactic acid at 6pm --MRI with contrast ordered --cultures collected and sent --continue empiric Vanc and Zosyn --received 1L NS in ED; will resuscitate another 2L then continuous infusion --requested ID Dr. Davenport to consult Hyperlipidemia --on no meds FEN Fluids: will be fluid resuscitated total 3L of NS, then continuous infusion @ 100mL/hr Electrolytes: replete as indicated Nutrition: regular diet DVT prophylaxis: subq heparin Dispo: continues to require inpatient care. Full code. Visit type - Emergency Visit Emergency Visit: Yes ED Registration Date: 11/22/17 Care time: The patient presented to the Emergency Department on the above date and was hospitalized for further evaluation of their emergent condition. - New Patient This patient is new to me today: Yes Date on this admission: 11/23/17 - Critical Care Critical Care patient: Yes Total Critical Care Time (in minutes): 90 Critical Care Statement: The care of this patient involved high complexity decision making to prevent further life threatening deterioration of the patient 's condition and/or to evaluate & treat vital organ system(s) failure or risk of failure.
[2017-11-23] MEDS ORDERED: PIPERACILLIN/TAZOB 3.375 GM 3.375 GM/50 ML BAG IVPB ONE (13:00)
--- NOTE | 2017-11-23 13:16 | EKG ---
Test Reason : Blood Pressure : / mmHG Vent. Rate : 106 BPM Atrial Rate : 106 BPM P-R Int : 132 ms QRS Dur : 110 ms QT Int : 360 ms P-R-T Axes : 060 030 024 degrees QTc Int : 478 ms SINUS TACHYCARDIA OTHERWISE NORMAL ECG NO PREVIOUS ECGS AVAILABLE Confirmed by Gabriel Salomon MD ([id number]) on 11/23/2017 1:15:15 PM Referred By: DR LOPEZ Confirmed By:Gabriel Salomon MD
[2017-11-23 13:18] LABS: BASO % 0.4 % (0-2.0); EOS % 0.9 % (0-4.5); HEMATOCRIT 34.8 % (35.4-49); HEMOGLOBIN 11.9 GM/dl (11.7-16.9); LYMPH % 9.6 % (8-40); MCH 31.7 pg (25.7-33.7); MCHC 34.1 g/dl (32.0-35.9); MEAN PLT VOLUME 7.9 fl (7.5-11.1); MONO % 10.8 % (3.8-10.2); NEUT % 78.3 % (42.8-82.8); PLATELET COUNT 309 K/MM3 (134-434); RBC 3.74 M/mm3 (4.00-5.60); RDW 12.3 % (11.9-15.9); WHITE BLOOD COUNT 15.1 K/mm3 (4.0-10.8)
[2017-11-23 13:26] LABS: ALBUMIN 3.6 g/dl (3.5-5.0); ALK PHOS 79 U/L (32-92); ANION GAP 6 (8-16); BILIRUBIN,TOTAL 1.1 mg/dl (0.2-1.0); BLOOD UREA NITROGEN 12 mg/dl (7-18); CALCIUM 7.9 mg/dl (8.4-10.2); CHLORIDE 101 mmol/L (98-107); CO2 24 mmol/L (22-28); CREATININE 0.8 mg/dl (0.6-1.3); GLUCOSE,RANDOM 217 mg/dl (74-106); POTASSIUM 3.7 mmol/L (3.5-5.1); SGOT/AST 33 U/L (10-42); SGPT/ALT 46 U/L (10-40); SODIUM 131 mmol/L (136-145); TOT PROT 6.4 g/dl (6.4-8.3)
[2017-11-23] MEDS ORDERED: VANCOMYCIN 1,500 MG in DEXTROSE 5%-WATER - 500 ML IVPB ONE (13:30)
[2017-11-23] MEDS: HEPARIN NA (PORCINE) 5,000 UNITS/ML 1ML VIAL SQ SCH ×3 (14:00→23:55)
--- NOTE | 2017-11-23 15:30 | CON.ID ---
Consult Consult Specialty:: infectious diseases Referred by:: Lara avendano Reason for Consultation:: sepsis,fever,post op spinal infection - History of Present Illness Chief Complaint: fever,swelling and erythema on the left side History of Present Illness: 52 year old male, with a significant PMH of hypercholesterolemia, admitted to [facility] s/p spinal fusion surgery of his lumbar spine on 11/08/17. The patient's reports that the patient was having back pain, fever 103.9 chills, increased hardness, and redness to surgical site on left side of his lower back with drainage of serosanguineous fluid that started after he was discharged from hospital on 11/09/17. according to the her finally started shaking and fever and was brought to the hospital. patient initially had clear drainage then different color and then patients drainage decreased and then the swelling occured this all occurred on the left side patient looks septic and i am worried if he had spinal infection. patient also c/o of headaches but says it does not bother him patient just had imaging studies done and plan is to drain the collection tomorrow patient started on abx - History Source History Provided By: Patient, Family Member Limitations to Obtaining History: Language Barrier - Alcohol/Substance Use Hx Alcohol Use: Yes (SOCIALLY) - Smoking History Smoking history: Never smoked Have you smoked in the past 12 months: No Home Medications - Allergies Allergies/Adverse Reactions: Allergies Allergy/AdvReac Type Severity Reaction Status Date / Time No Known Drug Allergies Allergy Verified 11/22/17 21:25 - Home Medications Home Medications: Ambulatory Orders Hydrocodone/Acetaminophen [Vicodin 5-300 mg Tablet] 1 each PO Q4H PRN #30 tablet MDD 6 11/08/17 Review of Systems - Review of Systems Constitutional: reports: Chills, Fever Eyes: reports: No Symptoms HENT: reports: No Symptoms Cardiovascular: reports: No Symptoms Respiratory: reports: No Symptoms Gastrointestinal: reports: No Symptoms Genitourinary: reports: No Symptoms Musculoskeletal: reports: Back Pain, Other Integumentary: reports: Change in Color, Erythema, Wound (all on the left side) Neurological: reports: No Symptoms Endocrine: reports: No Symptoms Hematology/Lymphatic: reports: No Symptoms Psychiatric: reports: No Symptoms Physical Exam Vital Signs: Vital Signs Temperature 98.8 F 11/23/17 14:14 Pulse Rate 106 H 11/23/17 14:14 Respiratory Rate 19 11/23/17 14:14 Blood Pressure 110/68 11/23/17 14:14 O2 Sat by Pulse Oximetry (%) 97 11/23/17 14:14 Constitutional: Yes: Well Nourished, Calm, Moderate Distress Eyes: Yes: Conjunctiva Clear Neck: Yes: Supple, Trachea Midline Cardiovascular: Yes: Regular Rate and Rhythm Respiratory: Yes: Regular, CTA Bilaterally Gastrointestinal: Yes: Normal Bowel Sounds, Soft Musculoskeletal: Yes: Back Pain Extremities: Yes: WNL Wound/Incision: Yes: Reddened, Other (swollen on the left side tender) Neurological: Yes: Alert, Oriented, Other (headache) Psychiatric: Yes: Alert, Oriented Labs: CBC, BMP 11/23/17 12:33 11/23/17 12:33 Imaging - Results Chest X-ray: Report Reviewed, Image Reviewed Cat Scan: Report Reviewed, Image Reviewed MRI: Report Reviewed, Image Reviewed Assessment/Plan after examining the patient i am very worried if the patient has developed paraspinal abscess or patient has any infection in the spinal cord though the collection is at the side r/o Paraspinal Abscess Sepsis Lactic Acidosis HTN Hyperlipidemia leukocytosis l5-s1 decompression fever plan will continue iv abx close watch for fever monitor wbc ir to drain collection patient septic cc time 45 min
[2017-11-23] MEDS: PIPERACILLIN/TAZOB 4.5 GM 4.5 GM/100 ML BAG IVPB SCH (17:00)
[2017-11-23] MEDS ORDERED: PIPERACILLIN/TAZOB 4.5 GM 4.5 GM in DEXTROSE 5%-WATER 100 ML IVPB SCH (18:00)
[2017-11-23] MEDS ORDERED: LORazepam 2 MG/ML SDV VIAL IVPUSH ONE (20:01)
--- NOTE | 2017-11-23 20:06 | CONSULT ---
Consultation: REQUESTING PROVIDER: CONSULT REQUEST: ICU HISTORY OF PRESENT ILLNESS: The patient is a 52 year old male, with a significant PMH of hypercholesterolemia, admitted to [facility] s/p spinal fusion surgery of his lumbar spine on 11/08/17. The patient's reports that the patient was having back pain, fever 103.9 chills, increased hardness, and redness to surgical site on left side of his lower back with drainage of serosanguineous fluid that started after he was discharged from hospital on . The reports that her husbands pain became so strong that OTC medications were not working. He was found to have elevated WBC 17.3, LA 3.3, started on Vancomycin, Zosyn, CT shows bilateral posterior superficial tubular- like collections consistent with serosanguinous fluid L3-S1. He was transferred to ICU for further monitoring. The patient on arrival to ICU is AAOx3, VS 120/55 , HR 110, rectal temp 100.7F, Oxyg Sat 100 % on RA. He is only complaining of decreased sensation in LLE, below the knee, denies pain. He is scheduled for IR drainage tomorrow at 9 AM. PSH:Lumbar laminectomy 2011 SH: Drinks alcohol socially, no cig, no drugs, . NKDA REVIEW OF SYSTEMS: CONSTITUTIONAL: Absent: fever, chills, diaphoresis, generalized weakness, malaise HEENT: Absent: rhinorrhea, difficulty swallowing, mouth swelling CARDIOVASCULAR: Absent: chest pain, syncope, palpitations, irregular heart rate, lightheadedness , peripheral edema RESPIRATORY: Absent: cough, shortness of breath, dyspnea with exertion, orthopnea, wheezing GASTROINTESTINAL: Absent: abdominal pain, abdominal distension, nausea, vomiting, diarrhea, constipation GENITOURINARY: Absent: dysuria, frequency, urgency, hesitancy, hematuria, MUSCULOSKELETAL: Absent: myalgia, arthralgia, joint swelling, back pain, neck pain NEUROLOGIC: Absent: headache, focal weakness or paresthesias, dizziness PSYCHIATRIC: Absent: anxiety, depression PHYSICAL EXAMINATION Vital Signs - 24 hr 11/22/17 11/22/17 11/23/17 21:30 23:54 00:54 Temperature 102.9 F H 100 F H 98.7 F Pulse Rate 122 H 94 H Respiratory 20 20 Rate Blood Pressure 131/78 124/63 O2 Sat by Pulse 97 100 Oximetry (%) 11/23/17 11/23/17 11/23/17 01:17 01:52 06:56 Temperature 98.7 F 98.7 F 98.9 F Pulse Rate 94 H 94 H 97 H Respiratory 18 18 19 Rate Blood Pressure 124/63 124/63 109/52 O2 Sat by Pulse 98 Oximetry (%) 11/23/17 11/23/17 11/23/17 09:00 10:00 11:40 Temperature 98.8 F 100.7 F H Pulse Rate 102 H Respiratory 16 16 Rate Blood Pressure 120/68 O2 Sat by Pulse 99 Oximetry (%) 11/23/17 11/23/17 11/23/17 14:14 16:05 17:32 Temperature 98.8 F 100.5 F H 99.8 F H Pulse Rate 106 H 106 H 100 H Respiratory 19 19 16 Rate Blood Pressure 110/68 125/73 126/80 O2 Sat by Pulse 97 97 Oximetry (%) 11/23/17 19:05 Temperature 98.8 F Pulse Rate 110 H Respiratory 19 Rate Blood Pressure 120/55 O2 Sat by Pulse 99 Oximetry (%) GENERAL: Awake, alert, and fully oriented, in no acute distress. HEAD: Normal with no signs of trauma. EYES: Pupils equal, round and reactive to light, extraocular movements intact, sclera anicteric, conjunctiva clear. EARS, NOSE, THROAT: Oropharynx clear without exudates. Moist mucous membranes. NECK: Normal range of motion, supple without lymphadenopathy. LUNGS: Breath sounds equal, clear to auscultation bilaterally. No wheezes, and no crackles. No accessory muscle use. HEART: Regular rate and rhythm, normal S1 and S2 without murmur, rub or gallop. ABDOMEN: Soft, nontender, not distended, normoactive bowel sounds, no guarding, no rebound, no masses. No hepatomegaly or splenomegaly. MUSCULOSKELETAL: Normal range of motion at all joints. Lower back: two longitudinal scars along lower spine, dressing applied on left one, small amount of drainage, mild tenderness to palpation, +swelling, induration. UPPER EXTREMITIES: No peripheral edema. LOWER EXTREMITIES: 2+ pulses, no peripheral edema. NEUROLOGICAL: Normal speech, no face asymmetry, decreased sensation to light touch in LLE, motor 4/5 in LLE, 5/5 in all other extremities. Gait not observed. PSYCHIATRIC: Cooperative. Good eye contact. Appropriate mood and affect. SKIN: Warm, dry, normal turgor, no rashes. Laboratory Results - last 24 hr 11/22/17 11/22/17 11/22/17 22:20 22:25 22:25 WBC 17.3 H RBC 3.92 L Hgb 12.3 Hct 35.4 MCV 90.3 MCH 31.4 MCHC 34.7 RDW 12.2 Plt Count 323 D MPV 7.9 Absolute Neuts (auto) 15.0 Neutrophils % 86.3 H Lymphocytes % 4.9 L Monocytes % 7.5 Eosinophils % 0.8 Basophils % 0.5 ESR PT with INR 13.8 H INR 1.24 H PTT (Actin FS) 30.8 Sodium Potassium Chloride Carbon Dioxide Anion Gap BUN Creatinine Creat Clearance w eGFR Random Glucose Lactic Acid Calcium Magnesium Total Bilirubin AST ALT Alkaline Phosphatase C-Reactive Protein Total Protein Albumin Urine Color Yellow Urine Appearance Clear Urine pH 8.0 Ur Specific [place] 1.015 Urine Protein Trace Urine Glucose (UA) Negative Urine Ketones Negative Urine Blood Negative Urine Nitrite Negative Urine Bilirubin Negative Urine Urobilinogen 0.2 Ur Leukocyte Esterase Negative 11/22/17 11/22/17 11/23/17 22:25 22:25 07:15 WBC 16.7 H RBC 3.60 L Hgb 11.8 Hct 32.7 L MCV 90.8 MCH 32.7 MCHC 36.0 H RDW 12.4 Plt Count 277 MPV 7.9 Absolute Neuts (auto) 13.1 Neutrophils % 79.2 Lymphocytes % 7.6 L D Monocytes % 11.9 H Eosinophils % 0.9 Basophils % 0.4 ESR PT with INR INR PTT (Actin FS) Sodium 132 L Potassium 3.9 Chloride 100 Carbon Dioxide 24 Anion Gap 8 BUN 12 Creatinine 0.8 Creat Clearance w eGFR > 60 Random Glucose 120 H Lactic Acid 1.9 Calcium 8.5 Magnesium Total Bilirubin 0.9 AST 46 H ALT 59 H Alkaline Phosphatase 89 C-Reactive Protein Total Protein 6.9 Albumin 4.0 Urine Color Urine Appearance Urine pH Ur Specific [place] Urine Protein Urine Glucose (UA) Urine Ketones Urine Blood Urine Nitrite Urine Bilirubin Urine Urobilinogen Ur Leukocyte Esterase 11/23/17 11/23/17 11/23/17 07:15 12:33 12:33 WBC 15.1 H RBC 3.74 L Hgb 11.9 Hct 34.8 L MCV 93.0 MCH 31.7 MCHC 34.1 RDW 12.3 Plt Count 309 MPV 7.9 Absolute Neuts (auto) 11.8 Neutrophils % 78.3 Lymphocytes % 9.6 D Monocytes % 10.8 H Eosinophils % 0.9 Basophils % 0.4 ESR PT with INR INR PTT (Actin FS) Sodium 133 L 131 L Potassium 3.9 3.7 Chloride 102 101 Carbon Dioxide 25 24 Anion Gap 6 L 6 L BUN 12 12 Creatinine 0.7 0.8 Creat Clearance w eGFR > 60 > 60 Random Glucose 147 H D 217 H D Lactic Acid Calcium 8.2 L 7.9 L Magnesium 2.0 Total Bilirubin 1.1 H AST 33 D ALT 46 H D Alkaline Phosphatase 79 D C-Reactive Protein Total Protein 6.4 Albumin 3.6 Urine Color Urine Appearance Urine pH Ur Specific [place] Urine Protein Urine Glucose (UA) Urine Ketones Urine Blood Urine Nitrite Urine Bilirubin Urine Urobilinogen Ur Leukocyte Esterase 11/23/17 11/23/17 11/23/17 12:33 12:33 12:33 WBC RBC Hgb Hct MCV MCH MCHC RDW Plt Count MPV Absolute Neuts (auto) Neutrophils % Lymphocytes % Monocytes % Eosinophils % Basophils % ESR 34 H PT with INR INR PTT (Actin FS) Sodium Potassium Chloride Carbon Dioxide Anion Gap BUN Creatinine Creat Clearance w eGFR Random Glucose Lactic Acid 3.3 H* Calcium Magnesium Total Bilirubin AST ALT Alkaline Phosphatase C-Reactive Protein 9.9 H Total Protein Albumin Urine Color Urine Appearance Urine pH Ur Specific [place] Urine Protein Urine Glucose (UA) Urine Ketones Urine Blood Urine Nitrite Urine Bilirubin Urine Urobilinogen Ur Leukocyte Esterase Active Medications Generic Name Dose Route Start Last Admin Trade Name Freq PRN Reason Stop Dose Admin Acetaminophen 650 mg 11/23/17 01:31 Tylenol - PO Q6H PRN FEVER Heparin Sodium (Porcine) 5,000 unit 11/23/17 14:00 11/23/17 16:00 Heparin - SQ 5,000 unit TID [facility] Administration Vancomycin HCl 1,500 mg/ 500 mls @ 250 mls/hr 11/24/17 15:45 Dextrose IVPB Q24H [facility] Protocol Piperacillin Sod/Tazobactam Sod 4.5 gm in 100 mls @ 200 mls/hr 11/23/17 18:00 11/23/17 17:00 Zosyn 4.5gm Ivpb (Pre-Docked) IVPB 200 mls/hr Q8H-IV [facility] Administration Protocol Sodium Chloride 1,000 mls @ 100 mls/hr 11/23/17 20:15 Normal Saline - IV ASDIR [facility] Lorazepam 1 mg 11/23/17 20:01 Ativan Injection - IVPUSH 11/23/17 20:02 ONCE ONE Morphine Sulfate 4 mg 11/23/17 01:30 11/23/17 07:47 Morphine Sulfate IVPUSH 4 mg Q6H PRN Administration PAIN LEVEL 7 - 10 Non-Formulary Medication 1 each 11/23/17 08:52 Hydrocodone/Acetaminophen [Vicodin 5-300 Mg Tablet] PO Q4H PRN PAIN ASSESSMENT/PLAN: The patient is a 52 year old male with a PMH significant for HTN, HLD and L5-S1 spondylolisthesis s/p L5-S1 decompression/fusion/instrumentation on 11/08/17. Admitted to ICU for severe sepsis likely secondary to post-operative infection. Severe sepsis likely secondary to postoperative infection lactic acidosis leukocytosis HLD HTN PLAN: -f/u LA and CMp stat on arrival to ICU -MRI with contrast ordered, will f/u -blood cultures pending -continue Vancomycin and Zosyn -continue NS at 100 cc/hr -f/u ID recommendations -wound care -pain control with Morphine 4 mg Q6h PRN -Tylenol 650 Q6H PRN for fever -DVT prophylaxis: sq heparin Full code. Dispo: We will continue to follow the patient. Thank you for this consultative opportunity. Visit type - Emergency Visit Emergency Visit: Yes ED Registration Date: 11/22/17 Care time: The patient presented to the Emergency Department on the above date and was hospitalized for further evaluation of their emergent condition. - New Patient This patient is new to me today: Yes Date on this admission: 11/24/17 - Critical Care Critical Care patient: Yes Total Critical Care Time (in minutes): 40 Critical Care Statement: The care of this patient involved high complexity decision making to prevent further life threatening deterioration of the patient 's condition and/or to evaluate & treat vital organ system(s) failure or risk of failure.
[2017-11-23] MEDS ORDERED: SODIUM CHLORIDE 1,000 ML IV SCH (20:15)
[2017-11-23 22:14] LABS: ALBUMIN 3.1 g/dl (3.4-5.0); ALK PHOS 111 U/L (45-117); ANION GAP 6 MMOL/L (8-16); BILIRUBIN,TOTAL 0.6 mg/dL (0.2-1.0); BLOOD UREA NITROGEN 11 mg/dL (7-18); CALCIUM 7.6 mg/dL (8.5-10.1); CHLORIDE 109 mmol/L (98-107); CO2 26 mmol/L (21-32); CREATININE 0.8 mg/dL (0.7-1.3); GLUCOSE,RANDOM 154 mg/dL (74-106); POTASSIUM 3.9 mmol/L (3.5-5.1); SGOT/AST 19 U/L (15-37); SGPT/ALT 47 U/L (12-78); SODIUM 141 mmol/L (136-145); TOT PROT 5.9 g/dl (6.4-8.2)
[2017-11-24] MEDS ORDERED: VANCOMYCIN 1,500 MG in DEXTROSE 5%-WATER - 500 ML IVPB SCH ×2 (02:00→15:45)
[2017-11-24] MEDS ORDERED: PIPERACILLIN/TAZOB 4.5 GM 4.5 GM in DEXTROSE 5%-WATER 100 ML IVPB SCH (02:15)
[2017-11-24] MEDS: PIPERACILLIN/TAZOB 4.5 GM 4.5 GM in DEXTROSE 5%-WATER 100 ML IVPB SCH ×3 (02:25→17:15)
[2017-11-24 06:26] LABS: BASO % 0.6 % (0-2.0); EOS % 2.5 % (0-4.5); HEMATOCRIT 33.6 % (35.4-49); HEMOGLOBIN 11.3 GM/dL (11.7-16.9); MCH 30.6 pg (25.7-33.7); MCHC 33.7 g/dl (32.0-35.9); MEAN CELL VOLUME 90.9 fl (80-96); MEAN PLT VOLUME 7.6 fl (7.5-11.1); MONO % 10.4 % (3.8-10.2); NEUT % 70.5 % (42.8-82.8); PLATELET COUNT 272 K/MM3 (134-434); RBC 3.69 M/mm3 (4.00-5.60); RDW 13.2 % (11.9-15.9); WHITE BLOOD COUNT 11.4 K/mm3 (4.0-10.0)
[2017-11-24 06:41] LABS: INR 1.24 (0.83-1.09)
[2017-11-24 06:43] LABS: ACTIVATED PTT 31.7 SECONDS (25.2-36.5)
[2017-11-24 07:05] LABS: CHLORIDE 112 mmol/L (98-107); SODIUM 146 mmol/L (136-145)
[2017-11-24 07:15] LABS: MAGNESIUM 2.2 mg/dL (1.8-2.4); PHOSPHOROUS 2.5 mg/dL (2.5-4.9)
[2017-11-24 07:39] LABS: SGPT/ALT 43 U/L (12-78)
[2017-11-24 08:32] LABS: ALBUMIN 3.1 g/dl (3.4-5.0); ALK PHOS 89 U/L (45-117); ANION GAP 9 MMOL/L (8-16); BILIRUBIN,TOTAL 0.9 mg/dL (0.2-1.0); BLOOD UREA NITROGEN 10 mg/dL (7-18); CALCIUM 7.9 mg/dL (8.5-10.1); CO2 25 mmol/L (21-32); CREATININE 0.7 mg/dL (0.7-1.3); GLUCOSE,RANDOM 126 mg/dL (74-106); SGOT/AST 18 U/L (15-37); TOT PROT 5.9 g/dl (6.4-8.2)
[2017-11-24] MEDS ORDERED: DEXTROSE 5%-WATER 100 ML IVPB ONE ×2 (08:34→16:35)
[2017-11-24] MEDS ORDERED: PIPERACILLIN/TAZOBACTAM 4.5 GM VIAL IVPB ONE ×2 (08:34→16:35)
[2017-11-24] MEDS ORDERED: morphine SULFATE 4 MG/ML VIAL IVPUSH PRN ×2 (09:10→19:28)
[2017-11-24] MEDS ORDERED: PATIENT'S OWN MEDICATION (NON-FORMULARY) (Hydrocodone/Acetaminophen [Vicodin 5-300 Mg Tabl PO PRN ×2 (09:10→19:28)
[2017-11-24] MEDS ORDERED: CHLORHEXIDINE GLUCONATE 4% CLEANSER FOR DECOLONIZATION TP SCH (09:10)
[2017-11-24] MEDS ORDERED: ACETAMINOPHEN 325 MG TABLET (FP) PO PRN ×2 (09:10→19:28)
--- NOTE | 2017-11-24 09:25 | PN ---
Progress Note (short form) - Note Progress Note: Pt without complaints of headache. He stated that his LLE pain is improved. Vital Signs Period Temp Pulse Resp BP Sys/James Pulse Ox Last 24 Hr 98 F-100.7 F 84-110 16-20 102-126/55-80 97-100 GEN: appears comfortable Back: No erythema noted/small amount of fullness. No pain with palpation. No drainage noted with palpation. Left incision with small pin point opening. Right inc c/d/i CBC, BMP 11/24/17 05:30 11/24/17 05:30 Microbiology 11/22/17 22:25 Blood - Peripheral Venous Blood Culture - Preliminary NO GROWTH OBTAINED AFTER 24 HOURS, INCUBATION TO CONTINUE FOR 4 DAYS. 11/22/17 22:25 Blood - Peripheral Venous Blood Culture - Preliminary NO GROWTH OBTAINED AFTER 24 HOURS, INCUBATION TO CONTINUE FOR 4 DAYS. Laboratory Tests 11/22/17 11/23/17 22:20 20:30 Lactic Acid 1.4 Urine Color Yellow Urine Appearance Clear Urine pH 8.0 Ur Specific [place] 1.015 Urine Protein Trace Urine Glucose (UA) Negative Urine Ketones Negative Urine Blood Negative Urine Nitrite Negative Urine Bilirubin Negative Urine Urobilinogen 0.2 Ur Leukocyte Esterase Negative CXR: no infiltrates A/P: 52 yo male s/p lumbar fusion L5-S1 on 11/08/2017, now with fevers Sepsis improving, with decreased fevers/leukocytosis and lactic acid D/w Dr. Francis he decompressed the wound yesterday with bedside needle aspiration(no pus and appeared to be a liquifing hematoma) No further evaucation/drainage needed at this time. The patient appears to be improving. Recommend to continue IV abx as per ID OOB ambulate Keep incision covered at all times with dressing May transfer out of the ICU as per medical/icu team
[2017-11-24] MEDS ORDERED: MUPIROCIN 2% TOPICAL OINTMENT FOR DECOLONIZATION NS SCH (10:00)
--- NOTE | 2017-11-24 12:09 | PN ---
Teaching Attending Note Name of Resident: Parag Aljeandro ATTENDING PHYSICIAN STATEMENT I saw and evaluated the patient. I reviewed the resident's note and discussed the case with the resident. I agree with the resident's findings and plan as documented. SUBJECTIVE: Pt seen and examined in the ICU. s/p CT guided drainage of paraspinal collections. Fever curve trending down. Denies shortness of breath or chest pain. OBJECTIVE: Vital Signs Period Temp Pulse Resp BP Sys/James Pulse Ox Last 24 Hr 98 F-100.7 F 84-110 12-20 102-126/55-80 97-100 Intake & Output 11/21/17 11/22/17 11/23/17 11/24/17 23:59 23:59 23:59 23:59 Intake Total 3450 1300 Output Total 700 300 Balance 2750 1000 Weight 102.512 kg 100.698 kg 102.875 kg Gen: NAD at rest Heart: RRR Lung: decreased breath sounds at the bases Abd: soft, nontender Ext: no edema Drain with cloudy serosanguinous drainage CBC, BMP 11/24/17 05:30 11/24/17 05:30 Active Medications Acetaminophen (Tylenol -) 650 mg PO Q6H PRN PRN Reason: FEVER Chlorhexidine Gluconate (Hibiclens For Decolonization -) 1 applic TP HS [facility] Heparin Sodium (Porcine) (Heparin -) 5,000 unit SQ TID [facility] Sodium Chloride (Normal Saline -) 1,000 mls @ 100 mls/hr IV ASDIR [facility] Last Admin: 11/23/17 20:19 Dose: 100 mls/hr Piperacillin Sod/Tazobactam (Sod 4.5 gm/ Dextrose) 100 mls @ 200 mls/hr IVPB Q8H-IV [facility]; Protocol Last Admin: 11/24/17 09:09 Dose: 200 mls/hr Vancomycin HCl 1,500 mg/ (Dextrose) 500 mls @ 250 mls/hr IVPB DAILY@1400 [facility]; Protocol Morphine Sulfate (Morphine Sulfate) 4 mg IVPUSH Q6H PRN PRN Reason: PAIN LEVEL 7 - 10 Mupirocin (Bactroban Ointment (For Decolonization) -) 1 applic NS BID [facility] Stop: 11/29/17 09:59 Non-Formulary Medication (Hydrocodone/Acetaminophen [Vicodin 5-300 Mg Tablet]) 1 each PO Q4H PRN PRN Reason: PAIN ASSESSMENT AND PLAN: r/o Paraspinal Abscess Recent L5-S1 decompression/fusion Sepsis Lactic Acidosis HTN Hyperlipidemia - continue antibiotics - f/u cultures - monitor drain output - pain control - PO as tolerated - DVT prophylaxis - can monitor on floor
[2017-11-24] MEDS ORDERED: PT OWN MED DRAWER 7, Y5N ONE (13:52)
[2017-11-24] MEDS ORDERED: HEPARIN NA (PORCINE) 5,000 UNITS/ML 1ML VIAL SQ SCH (14:00)
[2017-11-24 14:40] VITALS: BMI 41.3
--- NOTE | 2017-11-24 15:13 | PN ---
Progress Note, Physician History of Present Illness: had drainage done still with pain and not feeling well wbc has been trending down remaining afebrile - Current Medication List Current Medications: Active Medications Acetaminophen (Tylenol -) 650 mg PO Q6H PRN PRN Reason: FEVER Chlorhexidine Gluconate (Hibiclens For Decolonization -) 1 applic TP HS [facility] Last Admin: 11/24/17 08:50 Dose: 1 applic Heparin Sodium (Porcine) (Heparin -) 5,000 unit SQ TID [facility] Last Admin: 11/24/17 14:29 Dose: 5,000 unit Sodium Chloride (Normal Saline -) 1,000 mls @ 100 mls/hr IV ASDIR [facility] Last Admin: 11/23/17 20:19 Dose: 100 mls/hr Piperacillin Sod/Tazobactam (Sod 4.5 gm/ Dextrose) 100 mls @ 200 mls/hr IVPB Q8H-IV [facility]; Protocol Last Admin: 11/24/17 09:09 Dose: 200 mls/hr Vancomycin HCl 1,500 mg/ (Dextrose) 500 mls @ 250 mls/hr IVPB DAILY@1400 [facility]; Protocol Morphine Sulfate (Morphine Sulfate) 4 mg IVPUSH Q6H PRN PRN Reason: PAIN LEVEL 7 - 10 Mupirocin (Bactroban Ointment (For Decolonization) -) 1 applic NS BID [facility] Stop: 11/29/17 09:59 Last Admin: 11/24/17 10:00 Dose: 1 applic Non-Formulary Medication (Hydrocodone/Acetaminophen [Vicodin 5-300 Mg Tablet]) 1 each PO Q4H PRN PRN Reason: PAIN - Objective Vital Signs: Vital Signs Temperature 98.9 F 11/24/17 13:22 Pulse Rate 86 11/24/17 13:22 Respiratory Rate 18 11/24/17 13:22 Blood Pressure 119/70 11/24/17 13:22 O2 Sat by Pulse Oximetry (%) 100 11/24/17 11:20 Constitutional: Yes: No Distress, Calm Cardiovascular: Yes: Regular Rate and Rhythm Respiratory: Yes: Regular, CTA Bilaterally Gastrointestinal: Yes: Normal Bowel Sounds, Soft Musculoskeletal: Yes: Back Pain Extremities: Yes: WNL Wound/Incision: Yes: Dressing Dry and Intact Neurological: Yes: Alert, Oriented Psychiatric: Yes: Alert, Oriented Labs: CBC, BMP 11/24/17 05:30 11/24/17 05:30 INR, PTT INR 1.24 (0.83-1.09) H 11/24/17 05:30 Assessment/Plan r/o Paraspinal Abscess Sepsis Lactic Acidosis HTN Hyperlipidemia leukocytosis l5-s1 decompression fever plan will continue iv abx close watch for fever monitor wbc collection drained await for fluid cx cc time 40 min
[2017-11-24] MEDS: VANCOMYCIN 1,500 MG in DEXTROSE 5%-WATER - 500 ML IVPB SCH (16:24)
--- NOTE | 2017-11-24 18:23 | PN ---
Physical Exam: SUBJECTIVE: Patient seen and examined. He is comfortable sitting in chair. Pain is controlled. He reports numbness and a cold sensation in his left leg. OBJECTIVE: Vital Signs Period Temp Pulse Resp BP Sys/James Pulse Ox Last 24 Hr 98 F-100.7 F 84-110 12-20 95-123/55-79 99-100 GENERAL: The patient is awake, alert, and fully oriented, in no acute distress. LUNGS: Breath sounds equal, clear to auscultation bilaterally, no wheezes, no crackles, no accessory muscle use. HEART: Regular rate and rhythm, S1, S2 without murmur, rub or gallop. ABDOMEN: Soft, nontender, nondistended, normoactive bowel sounds, no guarding, no rebound, no hepatosplenomegaly, no masses. EXTREMITIES: 2+ pulses, warm, well-perfused, no edema. Laboratory Results - last 24 hr 11/23/17 11/23/17 11/23/17 20:30 20:30 20:30 WBC RBC Hgb Hct MCV MCH MCHC RDW Plt Count MPV Absolute Neuts (auto) Neutrophils % Lymphocytes % Monocytes % Eosinophils % Basophils % Nucleated RBC % PT with INR INR PTT (Actin FS) Sodium 141 Potassium 3.9 Chloride 109 H Carbon Dioxide 26 Anion Gap 6 L BUN 11 Creatinine 0.8 Creat Clearance w eGFR > 60 Random Glucose 154 H Lactic Acid 1.4 Calcium 7.6 L Phosphorus 2.5 Cancelled Magnesium 2.2 Cancelled Total Bilirubin 0.6 AST 19 ALT 47 Alkaline Phosphatase 111 Total Protein 5.9 L Albumin 3.1 L 11/24/17 11/24/17 11/24/17 05:30 05:30 05:30 WBC 11.4 H RBC 3.69 L Hgb 11.3 L Hct 33.6 L MCV 90.9 MCH 30.6 MCHC 33.7 RDW 13.2 Plt Count 272 MPV 7.6 Absolute Neuts (auto) 8.1 H Neutrophils % 70.5 Lymphocytes % 16.0 Monocytes % 10.4 H Eosinophils % 2.5 Basophils % 0.6 Nucleated RBC % 0 PT with INR 14.00 H INR 1.24 H PTT (Actin FS) 31.7 Sodium 146 H Potassium 4.0 Chloride 112 H Carbon Dioxide 25 Anion Gap 9 BUN 10 Creatinine 0.7 Creat Clearance w eGFR > 60 Random Glucose 126 H Lactic Acid Calcium 7.9 L Phosphorus Magnesium Total Bilirubin 0.9 AST 18 ALT 43 Alkaline Phosphatase 89 D Total Protein 5.9 L Albumin 3.1 L Active Medications Generic Name Dose Route Start Last Admin Trade Name Magdielq PRN Reason Stop Dose Admin Acetaminophen 650 mg 11/24/17 09:10 Tylenol - PO Q6H PRN FEVER Chlorhexidine Gluconate 1 applic 11/24/17 09:10 11/24/17 08:50 Hibiclens For Decolonization - TP 1 applic HS [facility] Administration Heparin Sodium (Porcine) 5,000 unit 11/24/17 14:00 11/24/17 14:29 Heparin - SQ 5,000 unit TID [facility] Administration Sodium Chloride 1,000 mls @ 100 mls/hr 11/23/17 20:15 11/23/17 20:19 Normal Saline - IV 100 mls/hr ASDIR [facility] Administration Piperacillin Sod/Tazobactam 100 mls @ 200 mls/hr 11/24/17 02:15 11/24/17 17: 15 Sod 4.5 gm/ Dextrose IVPB 200 mls/hr Q8H-IV [facility] Administration Protocol Vancomycin HCl 1,500 mg/ 500 mls @ 250 mls/hr 11/24/17 14:00 11/24/17 16:24 Dextrose IVPB 250 mls/hr DAILY@1400 [facility] Administration Protocol Morphine Sulfate 4 mg 11/24/17 09:10 Morphine Sulfate IVPUSH Q6H PRN PAIN LEVEL 7 - 10 Mupirocin 1 applic 11/24/17 10:00 11/24/17 10:00 Bactroban Ointment (For Decolonization) - NS 11/29/17 09:59 1 applic BID [facility] Administration Non-Formulary Medication 1 each 11/24/17 09:10 Hydrocodone/Acetaminophen [Vicodin 5-300 Mg Tablet] PO Q4H PRN PAIN ASSESSMENT/PLAN: This is a 52 year old man with a history of hyperlipidemia, L5-S1 spondylolisthesis, L5-S1 decompression/fusion/instrumentation on 11/08/17 who presented to the ED with back pain, fever, and chills. 1. Severe sepsis secondary to paraspinal abscess - WBC, temp, tachycardia, lactic acidemia improved - s/p CT-guided drainage by IR today - Continue Zosyn, Vancomycin - Blood cultures negative - Follow up cultures of drainage fluid 2. L5-S1 spondylolisthesis, s/p decompression, fusion and instrumentation on 11/08 3. Hyperlipidemia - On no medication Visit type - Emergency Visit Emergency Visit: Yes ED Registration Date: 11/22/17 Care time: The patient presented to the Emergency Department on the above date and was hospitalized for further evaluation of their emergent condition. - New Patient This patient is new to me today: Yes Date on this admission: 11/24/17 - Critical Care Critical Care patient: No - Discharge Referral Referred to [facility] No
[2017-11-24] MEDS: SODIUM CHLORIDE 1,000 ML IV SCH (19:45)
[2017-11-24] MEDS: HEPARIN NA (PORCINE) 5,000 UNITS/ML 1ML VIAL SQ SCH (21:10)
--- NOTE | 2017-11-24 21:46 | PN ---
Physical Exam: SUBJECTIVE: Patient seen and examined this am and afternoon in icu. Resting bed , c/o pain left ankle. S/p drainage of paraspinal abscesses by Dr Mtz this earlier today. Denies cp or sob. OBJECTIVE: Vital Signs Period Temp Pulse Resp BP Sys/James Pulse Ox Last 24 Hr 98 F-99.5 F 84-99 12-20 95-129/56-79 100-100 GENERAL: Resting in bed, AAOx3 HEAD: NC/AT EYES: EOMI ENT: MMM NECK: No JVD. Supple LUNGS: Dec BS at bases HEART: RRR, S1 S2, No MRG ABDOMEN: NT, ND, No HSM EXTREMITIES: No CCE NEUROLOGICAL: Power decreased lower extremities. PSYCH: Normal mood, normal affect. SKIN: Warm, bump left ankle. Laboratory Results - last 24 hr 11/23/17 11/23/17 11/23/17 20:30 20:30 20:30 WBC RBC Hgb Hct MCV MCH MCHC RDW Plt Count MPV Absolute Neuts (auto) Neutrophils % Lymphocytes % Monocytes % Eosinophils % Basophils % Nucleated RBC % PT with INR INR PTT (Actin FS) Sodium 141 Potassium 3.9 Chloride 109 H Carbon Dioxide 26 Anion Gap 6 L BUN 11 Creatinine 0.8 Creat Clearance w eGFR > 60 Random Glucose 154 H Lactic Acid 1.4 Calcium 7.6 L Phosphorus 2.5 Cancelled Magnesium 2.2 Cancelled Total Bilirubin 0.6 AST 19 ALT 47 Alkaline Phosphatase 111 Total Protein 5.9 L Albumin 3.1 L 11/24/17 11/24/17 11/24/17 05:30 05:30 05:30 WBC 11.4 H RBC 3.69 L Hgb 11.3 L Hct 33.6 L MCV 90.9 MCH 30.6 MCHC 33.7 RDW 13.2 Plt Count 272 MPV 7.6 Absolute Neuts (auto) 8.1 H Neutrophils % 70.5 Lymphocytes % 16.0 Monocytes % 10.4 H Eosinophils % 2.5 Basophils % 0.6 Nucleated RBC % 0 PT with INR 14.00 H INR 1.24 H PTT (Actin FS) 31.7 Sodium 146 H Potassium 4.0 Chloride 112 H Carbon Dioxide 25 Anion Gap 9 BUN 10 Creatinine 0.7 Creat Clearance w eGFR > 60 Random Glucose 126 H Lactic Acid Calcium 7.9 L Phosphorus Magnesium Total Bilirubin 0.9 AST 18 ALT 43 Alkaline Phosphatase 89 D Total Protein 5.9 L Albumin 3.1 L Active Medications Generic Name Dose Route Start Last Admin Trade Name Freq PRN Reason Stop Dose Admin Acetaminophen 650 mg 11/24/17 19:28 Tylenol - PO Q6H PRN FEVER Heparin Sodium (Porcine) 5,000 unit 11/24/17 22:00 11/24/17 21:10 Heparin - SQ 5,000 unit TID VALENTIN Administration Piperacillin Sod/Tazobactam 100 mls @ 200 mls/hr 11/25/17 02:00 Sod 4.5 gm/ Dextrose IVPB Q8H-IV VALENTIN Protocol Sodium Chloride 1,000 mls @ 100 mls/hr 11/24/17 19:45 11/24/17 19:45 Normal Saline - IV 100 mls/hr ASDIR VALENTIN Administration Vancomycin HCl 1,500 mg/ 500 mls @ 250 mls/hr 11/25/17 14:00 Dextrose IVPB DAILY@1400 VALENTIN Protocol Morphine Sulfate 4 mg 11/24/17 19:28 Morphine Sulfate IVPUSH Q6H PRN PAIN LEVEL 7 - 10 Non-Formulary Medication 1 each 11/24/17 19:28 Hydrocodone/Acetaminophen [Vicodin 5-300 Mg Tablet] PO Q4H PRN PAIN ASSESSMENT/PLAN: The patient is a 52 year old male with a PMH significant for HTN, HLD and L5-S1 spondylolisthesis s/p L5-S1 decompression/fusion/instrumentation on 11/08/17. Admitted to ICU for severe sepsis likely secondary to post-operative infection. POD #1-->L5-S1 decompression/fusion/instrumentation, Paraspinal Abscess, Sepsis 2/2 Surgical site infection S/P CT-Guided drainage of paraspinal abscesses by Dr Mtz Lumbar Spine CT--> B/L Posterior Superficial Tubular Like Collections that may represent serosanguinous fluid extending from lower L3 through upper S1 level. Canno r/o superimposed infection. Lumbar Spine MRI--> B/L Posterior serosanguinous fluid collection lft greater than right. Left-> 5.3cmx4.7cmx6.7cm. Right-> 3.3 cmx2.4 cmx5.0 cm. left collection most likely represents an abscess communicating with small collection in the adjacent left posterior paraspinal space. Signal collection right density most likely represents hematoma. -LA 3.3 on admission. 1.4 most recent. WBC 17.3, trending down. -Zosyn 4.5 gm IVPB 100 mls @ 200 mls/hr -Vanomycin 1500 mg 500 mls@250 mls/hr IVPB Daily Pain: Morphine 4 mg IVPUSH Q6H PRN Pain 7-10 Vicodin 5-300 1 each PO Q4H PRN FEN NS 1,000 mls @ 100 mls/hr Monitor electrolytes Regular Diet DVT ppx: Heparin 5,000 U SQ BID Dispo: Pt to be transferred to [facility]-surg Visit type - Emergency Visit Emergency Visit: No - New Patient This patient is new to me today: Yes Date on this admission: 11/24/17 - Critical Care Critical Care patient: Yes Total Critical Care Time (in minutes): 35 Critical Care Statement: The care of this patient involved high complexity decision making to prevent further life threatening deterioration of the patient 's condition and/or to evaluate & treat vital organ system(s) failure or risk of failure.
[2017-11-25] MEDS ORDERED: PIPERACILLIN/TAZOBACTAM 4.5 GM VIAL IVPB ONE ×3 (00:34→16:52)
[2017-11-25] MEDS ORDERED: DEXTROSE 5%-WATER 100 ML IVPB ONE ×2 (00:34→16:52)
[2017-11-25] MEDS: PIPERACILLIN/TAZOB 4.5 GM 4.5 GM in DEXTROSE 5%-WATER 100 ML IVPB SCH ×3 (01:13→20:01)
[2017-11-25] MEDS: HEPARIN NA (PORCINE) 5,000 UNITS/ML 1ML VIAL SQ SCH ×3 (05:04→21:42)
[2017-11-25 06:58] LABS: BASO % 0.9 % (0-2.0); EOS % 3.9 % (0-4.5); HEMATOCRIT 31.6 % (35.4-49); HEMOGLOBIN 10.9 GM/dL (11.7-16.9); LYMPH % 23.4 % (8-40); MCH 31.2 pg (25.7-33.7); MCHC 34.5 g/dl (32.0-35.9); MEAN CELL VOLUME 90.2 fl (80-96); MEAN PLT VOLUME 7.9 fl (7.5-11.1); NEUT % 62.8 % (42.8-82.8); PLATELET COUNT 272 K/MM3 (134-434); RBC 3.51 M/mm3 (4.00-5.60); RDW 12.8 % (11.9-15.9)
[2017-11-25 07:09] LABS: ALBUMIN 2.9 g/dl (3.4-5.0); ALK PHOS 86 U/L (45-117); ANION GAP 10 MMOL/L (8-16); BILIRUBIN,TOTAL 0.4 mg/dL (0.2-1.0); BLOOD UREA NITROGEN 12 mg/dL (7-18); CALCIUM 7.8 mg/dL (8.5-10.1); CHLORIDE 113 mmol/L (98-107); CO2 23 mmol/L (21-32); CREATININE 0.6 mg/dL (0.7-1.3); GLUCOSE,RANDOM 108 mg/dL (74-106); MAGNESIUM 2.1 mg/dL (1.8-2.4); PHOSPHOROUS 3.9 mg/dL (2.5-4.9); POTASSIUM 4.1 mmol/L (3.5-5.1); SGOT/AST 17 U/L (15-37); SGPT/ALT 35 U/L (12-78); SODIUM 146 mmol/L (136-145); TOT PROT 5.8 g/dl (6.4-8.2)
[2017-11-25] MEDS ORDERED: PT OWN MED DRAWER 7, Y5N ONE ×2 (08:28→12:52)
--- NOTE | 2017-11-25 11:12 | PN ---
Teaching Attending Note Name of Resident: Parag Alejandro ATTENDING PHYSICIAN STATEMENT I saw and evaluated the patient. I reviewed the resident's note and discussed the case with the resident. I agree with the resident's findings and plan as documented. SUBJECTIVE: Pt seen and examined in the ICU. Denies fevers or chills. No back pain. Gram stain from paraspinal collection with gram positive cocci. OBJECTIVE: Vital Signs Period Temp Pulse Resp BP Sys/James Pulse Ox Last 24 Hr 98.4 F-98.9 F 78-92 12-20 95-141/54-79 100-100 Intake & Output 11/22/17 11/23/17 11/24/17 11/25/17 23:59 23:59 23:59 23:59 Intake Total 3450 3820 1720 Output Total 700 1270 5 Balance 2750 2550 1715 Weight 102.512 kg 100.698 kg 102.512 kg 102.33 kg Gen: NAD at rest Heart: RRR Lung: decreased breath sounds at the bases Abd: soft, nontender Ext: no edema Drains with cloudy serosanguinous fluid CBC, BMP 11/25/17 05:30 11/25/17 05:30 Active Medications Acetaminophen (Tylenol -) 650 mg PO Q6H PRN PRN Reason: FEVER Heparin Sodium (Porcine) (Heparin -) 5,000 unit SQ TID VALENTIN Last Admin: 11/25/17 05:04 Dose: 5,000 unit Piperacillin Sod/Tazobactam (Sod 4.5 gm/ Dextrose) 100 mls @ 200 mls/hr IVPB Q8H-IV VALENTIN; Protocol Last Admin: 11/25/17 09:32 Dose: 200 mls/hr Sodium Chloride (Normal Saline -) 1,000 mls @ 100 mls/hr IV ASDIR VALENTIN Last Admin: 11/24/17 19:45 Dose: 100 mls/hr Vancomycin HCl 1,500 mg/ (Dextrose) 500 mls @ 250 mls/hr IVPB DAILY@1400 VALENTIN; Protocol Morphine Sulfate (Morphine Sulfate) 4 mg IVPUSH Q6H PRN PRN Reason: PAIN LEVEL 7 - 10 Non-Formulary Medication (Hydrocodone/Acetaminophen [Vicodin 5-300 Mg Tablet]) 1 each PO Q4H PRN PRN Reason: PAIN ASSESSMENT AND PLAN: r/o Paraspinal Abscess Recent L5-S1 decompression/fusion Sepsis Lactic Acidosis HTN Hyperlipidemia - continue antibiotics - f/u cultures - monitor drain output - pain control - PO as tolerated - DVT prophylaxis - can monitor on floor
[2017-11-25] MEDS ORDERED: ACETAMINOPHEN 325 MG TABLET (FP) PO PRN (13:06)
[2017-11-25] MEDS ORDERED: oxyCODONE HCL 5 MG TABLET PO PRN (13:06)
[2017-11-25] MEDS ORDERED: VANCOMYCIN 1,500 MG in DEXTROSE 5%-WATER - 500 ML IVPB SCH (14:00)
--- NOTE | 2017-11-25 15:16 | PN ---
Progress Note (short form) - Note Progress Note: Subjective: The patient was seen and examined at the bedside, Current Medications Generic Name Dose Route Start Last Admin Trade Name Freq PRN Reason Stop Dose Admin Acetaminophen 650 mg 11/24/17 19:28 Tylenol - PO Q6H PRN FEVER Acetaminophen 325 mg 11/25/17 13:06 Tylenol - PO Q4H PRN PAIN 4-6 Heparin Sodium (Porcine) 5,000 unit 11/24/17 22:00 11/25/17 13:01 Heparin - SQ 5,000 unit TID VALENTIN Administration Piperacillin Sod/Tazobactam 100 mls @ 200 mls/hr 11/25/17 02:00 11/25/17 09: 32 Sod 4.5 gm/ Dextrose IVPB 200 mls/hr Q8H-IV VALENTIN Administration Protocol Sodium Chloride 1,000 mls @ 100 mls/hr 11/24/17 19:45 11/24/17 19:45 Normal Saline - IV 100 mls/hr ASDIR VALENTIN Administration Morphine Sulfate 4 mg 11/24/17 19:28 Morphine Sulfate IVPUSH Q6H PRN PAIN LEVEL 7 - 10 Oxycodone HCl 5 mg 11/25/17 13:06 Roxicodone - PO Q4H PRN PAIN 4-6 Objective: Vital Signs Period Temp Pulse Resp BP Sys/James Pulse Ox Last 24 Hr 98.4 F-98.8 F 78-92 13-20 95-141/54-71 100-100 Physical Exam: CBCD WBC 8.0 K/mm3 (4.0-10.0) 11/25/17 05:30 RBC 3.51 M/mm3 (4.00-5.60) L 11/25/17 05:30 Hgb 10.9 GM/dL (11.7-16.9) L 11/25/17 05:30 Hct 31.6 % (35.4-49) L 11/25/17 05:30 MCV 90.2 fl (80-96) 11/25/17 05:30 MCHC 34.5 g/dl (32.0-35.9) 11/25/17 05:30 RDW 12.8 % (11.9-15.9) 11/25/17 05:30 Plt Count 272 K/MM3 (134-434) 11/25/17 05:30 MPV 7.9 fl (7.5-11.1) 11/25/17 05:30 CMP Sodium 146 mmol/L (136-145) H 11/25/17 05:30 Potassium 4.1 mmol/L (3.5-5.1) 11/25/17 05:30 Chloride 113 mmol/L (98-107) H 11/25/17 05:30 Carbon Dioxide 23 mmol/L (21-32) 11/25/17 05:30 Anion Gap 10 MMOL/L (8-16) 11/25/17 05:30 BUN 12 mg/dL (7-18) 11/25/17 05:30 Creatinine 0.6 mg/dL (0.7-1.3) L 11/25/17 05:30 Creat Clearance w eGFR > 60 (>60) 11/25/17 05:30 Random Glucose 108 mg/dL (74-106) H 11/25/17 05:30 Calcium 7.8 mg/dL (8.5-10.1) L 11/25/17 05:30 Total Bilirubin 0.4 mg/dL (0.2-1.0) 11/25/17 05:30 AST 17 U/L (15-37) 11/25/17 05:30 ALT 35 U/L (12-78) 11/25/17 05:30 Alkaline Phosphatase 86 U/L (45-117) 11/25/17 05:30 Total Protein 5.8 g/dl (6.4-8.2) L 11/25/17 05:30 Albumin 2.9 g/dl (3.4-5.0) L 11/25/17 05:30 Microbiology 11/24/17 11:00 Abscess Gram Stain - Final 11/24/17 11:00 Abscess Wound Culture - Preliminary Strep Agalactiae Group B 11/24/17 11:00 Abscess Gram Stain - Final 11/24/17 11:00 Abscess Wound Culture - Preliminary NO GROWTH OBTAINED AFTER 24 HOURS INCUBATION, REINCUBATED. 11/22/17 22:25 Blood - Peripheral Venous Blood Culture - Preliminary NO GROWTH OBTAINED AFTER 48 HOURS, INCUBATION TO CONTINUE FOR 3 DAYS. 11/22/17 22:25 Blood - Peripheral Venous Blood Culture - Preliminary NO GROWTH OBTAINED AFTER 48 HOURS, INCUBATION TO CONTINUE FOR 3 DAYS. 11/22/17 22:20 Urine - Urine Clean Catch Urine Culture - Final NO GROWTH OBTAINED Imaging: Lumbar spine MRI: B/l posterior subcutaneous fluid collection left greater than right. The left collection likely represents an abscess communicating with small collection in the adjacent left posterior paraspinal muscle Lumbar spine CT: Bilateral posterior superficial tubular like collections that may represent serosanguineous fluid extending from lower L3 through upper S1 level. Cannot rule out superimposed infection Assessment: This is a 52 year old male with PMHx of hyperlipidemia, L5-S1 decompression/fusion/instrumentation on 11/08/17 who presented to the ED with back pain, fever to 103.9, chills. Plan: 1) Severe sepsis 2/2 paraspinal abscess - S/p CT guided drainage of left fluid collection at the surgical site - EDUARDO drain in place: 20ml output yesterday, serosangenous drainage - F/u wound cultures - Continue Zosyn - Appreciate ID consult - Appreciate surgery consult 2) F/E/N: - Monitor electrolytes - Regular diet Visit type - Emergency Visit Emergency Visit: Yes ED Registration Date: 11/22/17 Care time: The patient presented to the Emergency Department on the above date and was hospitalized for further evaluation of their emergent condition. - New Patient This patient is new to me today: Yes Date on this admission: 11/25/17 - Critical Care Critical Care patient: No
--- NOTE | 2017-11-25 15:50 | PN ---
Progress Note, Physician History of Present Illness: stable doing well cx reports noted pain main issue - Current Medication List Current Medications: Active Medications Acetaminophen (Tylenol -) 650 mg PO Q6H PRN PRN Reason: FEVER Acetaminophen (Tylenol -) 325 mg PO Q4H PRN PRN Reason: PAIN 4-6 Heparin Sodium (Porcine) (Heparin -) 5,000 unit SQ TID VALENTIN Last Admin: 11/25/17 13:01 Dose: 5,000 unit Piperacillin Sod/Tazobactam (Sod 4.5 gm/ Dextrose) 100 mls @ 200 mls/hr IVPB Q8H-IV VALENTIN; Protocol Last Admin: 11/25/17 09:32 Dose: 200 mls/hr Sodium Chloride (Normal Saline -) 1,000 mls @ 100 mls/hr IV ASDIR VALENTIN Last Admin: 11/24/17 19:45 Dose: 100 mls/hr Vancomycin HCl 1,500 mg/ (Dextrose) 500 mls @ 250 mls/hr IVPB DAILY@1400 VALENTIN; Protocol Morphine Sulfate (Morphine Sulfate) 4 mg IVPUSH Q6H PRN PRN Reason: PAIN LEVEL 7 - 10 Oxycodone HCl (Roxicodone -) 5 mg PO Q4H PRN PRN Reason: PAIN 4-6 - Objective Vital Signs: Vital Signs Temperature 98.8 F 11/25/17 10:24 Pulse Rate 88 11/25/17 12:00 Respiratory Rate 16 11/25/17 12:00 Blood Pressure 99/64 11/25/17 12:00 O2 Sat by Pulse Oximetry (%) 100 11/25/17 09:00 Constitutional: Yes: Calm, Mild Distress HENT: Yes: Atraumatic, Normocephalic Neck: Yes: Supple, Trachea Midline Cardiovascular: Yes: Regular Rate and Rhythm Respiratory: Yes: Regular, CTA Bilaterally Gastrointestinal: Yes: Normal Bowel Sounds, Soft Musculoskeletal: Yes: WNL Extremities: Yes: WNL Integumentary: Yes: Other Wound/Incision: Yes: Dressing Dry and Intact Neurological: Yes: Alert, Oriented Psychiatric: Yes: Alert, Oriented Labs: CBC, BMP 11/25/17 05:30 11/25/17 05:30 INR, PTT INR 1.24 (0.83-1.09) H 11/24/17 05:30 Assessment/Plan r/o Paraspinal Abscess Sepsis Lactic Acidosis HTN Hyperlipidemia leukocytosis l5-s1 decompression fever plan will continue iv abx cx reports noted will stop vanco rest as per icu and team cc time 40 min
[2017-11-25] MEDS: VANCOMYCIN 1,500 MG in DEXTROSE 5%-WATER - 500 ML IVPB SCH (16:24)
--- NOTE | 2017-11-25 18:25 | PN ---
Progress Note (short form) - Note Progress Note: Pt states that his left lower leg/foot is swollen. Vital Signs Period Temp Pulse Resp BP Sys/James Pulse Ox Last 24 Hr 98.4 F-98.8 F 78-92 13-20 95-141/54-71 100-100 GEN: A&0x, NAD Back: drain in place connected to EDUARDO bulb(on suction)/ dressing partially removed, incisions c/d/i without erythema/drainage. No pain with palpation. Reapplied dressing/tegaderm LLE: Left ankle/foot mild swelling. No calf tenderness RLE: no swelling noted. No calf tenderness CBC, BMP 11/25/17 05:30 11/25/17 05:30 Microbiology 11/24/17 11:00 Abscess Gram Stain - Final 11/24/17 11:00 Abscess Gram Stain - Final 11/22/17 22:20 Urine - Urine Clean Catch Urine Culture - Final NO GROWTH OBTAINED 11/24/17 11:00 Abscess Wound Culture - Preliminary Strep Agalactiae Group B 11/24/17 11:00 Abscess Wound Culture - Preliminary NO GROWTH OBTAINED AFTER 24 HOURS INCUBATION, REINCUBATED. 11/22/17 22:25 Blood - Peripheral Venous Blood Culture - Preliminary NO GROWTH OBTAINED AFTER 48 HOURS, INCUBATION TO CONTINUE FOR 3 DAYS. 11/22/17 22:25 Blood - Peripheral Venous Blood Culture - Preliminary NO GROWTH OBTAINED AFTER 48 HOURS, INCUBATION TO CONTINUE FOR 3 DAYS. A/P: 52 yo male s/p fusion of L5-S1 with post-op wound collection/fevers. Now s/ p bedside drainage and IR drainage of collection, most likely hematoma Clinically improving without fevers/resolving leukocytosis Culture sensitivity pending from abscess IR alonso Continue IV abx as per ID Ordered LLE duplex to r/o DVT/ left foot/ankle swollen D/w Dr. Francis and he agress with the plan <Conchita Gibson - Last Filed: 11/25/17 18:26> - Note Progress Note: Patient seen and examined He states that he feels better Drain in place Awaiting final culture report <Justin Francis - Last Filed: 11/29/17 10:06>
[2017-11-25] MEDS: SODIUM CHLORIDE 1,000 ML IV SCH ×2 (20:02→23:38)
--- NOTE | 2017-11-25 20:02 | PN ---
Physical Exam: SUBJECTIVE: Patient seen and examined this am in icu. Resting in bed, EDUARDO drain in place, denies cp or sob. No acue events overnight. Pt has been transferred to med-surg floor. OBJECTIVE: Vital Signs Period Temp Pulse Resp BP Sys/James Pulse Ox Last 24 Hr 98.4 F-98.8 F 78-92 13-20 95-141/54-71 100-100 GENERAL: Resting in bed, AAOx3 HEAD: NC/AT EYES: EOMI ENT: MMM NECK: No JVD. Supple LUNGS: Dec BS at bases HEART: RRR, S1 S2, No MRG ABDOMEN: NT, ND, No HSM EXTREMITIES: No CCE. EDUARDO drain in place, draining. NEUROLOGICAL: Power decreased lower extremities. LLE swelling. PSYCH: Normal mood, normal affect. SKIN: no rashes or lesions appreciated. Laboratory Results - last 24 hr 11/25/17 11/25/17 05:30 05:30 WBC 8.0 RBC 3.51 L Hgb 10.9 L Hct 31.6 L MCV 90.2 MCH 31.2 MCHC 34.5 RDW 12.8 Plt Count 272 MPV 7.9 Absolute Neuts (auto) 5.0 Neutrophils % 62.8 Lymphocytes % 23.4 D Monocytes % 9.0 Eosinophils % 3.9 Basophils % 0.9 Nucleated RBC % 0 Sodium 146 H Potassium 4.1 Chloride 113 H Carbon Dioxide 23 Anion Gap 10 BUN 12 Creatinine 0.6 L Creat Clearance w eGFR > 60 Random Glucose 108 H Calcium 7.8 L Phosphorus 3.9 D Magnesium 2.1 Total Bilirubin 0.4 AST 17 ALT 35 Alkaline Phosphatase 86 Total Protein 5.8 L Albumin 2.9 L Active Medications Generic Name Dose Route Start Last Admin Trade Name Freq PRN Reason Stop Dose Admin Acetaminophen 650 mg 11/24/17 19:28 Tylenol - PO Q6H PRN FEVER Acetaminophen 325 mg 11/25/17 13:06 Tylenol - PO Q4H PRN PAIN 4-6 Heparin Sodium (Porcine) 5,000 unit 11/24/17 22:00 11/25/17 13:01 Heparin - SQ 5,000 unit TID VALENTIN Administration Piperacillin Sod/Tazobactam 100 mls @ 200 mls/hr 11/25/17 02:00 11/25/17 09: 32 Sod 4.5 gm/ Dextrose IVPB 200 mls/hr Q8H-IV VALENTIN Administration Protocol Sodium Chloride 1,000 mls @ 100 mls/hr 11/24/17 19:45 11/24/17 19:45 Normal Saline - IV 100 mls/hr ASDIR VALENTIN Administration Morphine Sulfate 4 mg 11/24/17 19:28 Morphine Sulfate IVPUSH Q6H PRN PAIN LEVEL 7 - 10 Oxycodone HCl 5 mg 11/25/17 13:06 Roxicodone - PO Q4H PRN PAIN 4-6 ASSESSMENT/PLAN: The patient is a 52 year old male with a PMH significant for HTN, HLD and L5-S1 spondylolisthesis s/p L5-S1 decompression/fusion/instrumentation on 11/08/17. Admitted to ICU for severe sepsis likely secondary to post-operative infection. POD #2-->L5-S1 decompression/fusion/instrumentation, Paraspinal Abscess, Sepsis 2/2 Surgical site infection S/P CT-Guided drainage of paraspinal abscesses by Dr Mtz Lumbar Spine CT--> B/L Posterior Superficial Tubular Like Collections that may represent serosanguinous fluid extending from lower L3 through upper S1 level. Canno r/o superimposed infection. Lumbar Spine MRI--> B/L Posterior serosanguinous fluid collection lft greater than right. Left-> 5.3cmx4.7cmx6.7cm. Right-> 3.3 cmx2.4 cmx5.0 cm. left collection most likely represents an abscess communicating with small collection in the adjacent left posterior paraspinal space. Signal collection right density most likely represents hematoma. -LA 3.3 on admission. 1.4 most recent. WBC 8.0, down from 17.3 on admission. -Zosyn 4.5 gm IVPB 100 mls @ 200 mls/hr -Vanomycin 1500 mg 500 mls@250 mls/hr IVPB Daily-- D/C'ed today Gabriella Landon Gram Stain from paraspinal collection--> gram positive cocci---> STREP AGALACTIAE GROUP B Pain: Morphine 4 mg IVPUSH Q6H PRN Pain 7-10 Oxycodone HCl 5 mg PO Q4H PRN PAIN 4-6 FEN NS 1,000 mls @ 100 mls/hr Monitor electrolytes Regular Diet DVT ppx: Heparin 5,000 U SQ BID Dispo: Pt transferred to med-surg Visit type - Emergency Visit Emergency Visit: No - New Patient This patient is new to me today: No - Critical Care Critical Care patient: Yes Total Critical Care Time (in minutes): 35 Critical Care Statement: The care of this patient involved high complexity decision making to prevent further life threatening deterioration of the patient 's condition and/or to evaluate & treat vital organ system(s) failure or risk of failure.
[2017-11-26] MEDS ORDERED: PIPERACILLIN/TAZOBACTAM 4.5 GM VIAL IVPB ONE ×3 (00:15→16:55)
[2017-11-26] MEDS ORDERED: DEXTROSE 5%-WATER 100 ML IVPB ONE ×3 (00:15→16:55)
[2017-11-26] MEDS: PIPERACILLIN/TAZOB 4.5 GM 4.5 GM in DEXTROSE 5%-WATER 100 ML IVPB SCH ×3 (02:34→17:18)
[2017-11-26] MEDS: HEPARIN NA (PORCINE) 5,000 UNITS/ML 1ML VIAL SQ SCH ×3 (05:52→22:33)
[2017-11-26 08:16] LABS: HEMATOCRIT 32.8 % (35.4-49); HEMOGLOBIN 11.2 GM/dL (11.7-16.9); MCH 30.6 pg (25.7-33.7); MCHC 34.3 g/dl (32.0-35.9); MEAN CELL VOLUME 89.3 fl (80-96); MEAN PLT VOLUME 7.5 fl (7.5-11.1); PLATELET COUNT 324 K/MM3 (134-434); RBC 3.67 M/mm3 (4.00-5.60); RDW 13.3 % (11.9-15.9); WHITE BLOOD COUNT 7.9 K/mm3 (4.0-10.0)
[2017-11-26 09:10] LABS: ALBUMIN 3.2 g/dl (3.4-5.0); ANION GAP 10 MMOL/L (8-16); BILIRUBIN,TOTAL 0.4 mg/dL (0.2-1.0); BLOOD UREA NITROGEN 10 mg/dL (7-18); CALCIUM 8.3 mg/dL (8.5-10.1); CHLORIDE 114 mmol/L (98-107); CO2 23 mmol/L (21-32); CREATININE 0.7 mg/dL (0.7-1.3); GLUCOSE,RANDOM 99 mg/dL (74-106); MAGNESIUM 2.3 mg/dL (1.8-2.4); PHOSPHOROUS 4.6 mg/dL (2.5-4.9); SGOT/AST 41 U/L (15-37); SGPT/ALT 55 U/L (12-78); SODIUM 147 mmol/L (136-145); TOT PROT 6.3 g/dl (6.4-8.2)
[2017-11-26 09:12] LABS: ALK PHOS 74 U/L (45-117)
--- NOTE | 2017-11-26 09:20 | PN ---
Physical Exam: SUBJECTIVE: Patient seen and examined. He says he is doing much better. OBJECTIVE: Vital Signs Period Temp Pulse Resp BP Sys/James Pulse Ox Last 24 Hr 98.2 F-98.8 F 75-88 16-18 99-117/59-69 100-100 GENERAL: The patient is awake, alert, and fully oriented, in no acute distress. LUNGS: Breath sounds equal, clear to auscultation bilaterally, no wheezes, no crackles, no accessory muscle use. HEART: Regular rate and rhythm, S1, S2 without murmur, rub or gallop. ABDOMEN: Obese, soft, nontender, nondistended, normoactive bowel sounds, no guarding, no rebound, no hepatosplenomegaly, no masses. EXTREMITIES: 2+ pulses, warm, well-perfused, no edema. BACK: Dressings clean. EDUARDO drain in place. Laboratory Results - last 24 hr 11/26/17 06:00 WBC 7.9 RBC 3.67 L Hgb 11.2 L Hct 32.8 L MCV 89.3 MCH 30.6 MCHC 34.3 RDW 13.3 Plt Count 324 MPV 7.5 Active Medications Generic Name Dose Route Start Last Admin Trade Name Freq PRN Reason Stop Dose Admin Acetaminophen 650 mg 11/24/17 19:28 Tylenol - PO Q6H PRN FEVER Acetaminophen 325 mg 11/25/17 13:06 Tylenol - PO Q4H PRN PAIN 4-6 Heparin Sodium (Porcine) 5,000 unit 11/24/17 22:00 11/26/17 05:52 Heparin - SQ 5,000 unit TID VALENTIN Administration Piperacillin Sod/Tazobactam 100 mls @ 200 mls/hr 11/25/17 02:00 11/26/17 02: 34 Sod 4.5 gm/ Dextrose IVPB 200 mls/hr Q8H-IV VALENTIN Administration Protocol Sodium Chloride 1,000 mls @ 100 mls/hr 11/24/17 19:45 11/25/17 23:38 Normal Saline - IV 100 mls/hr ASDIR VALENTIN Administration Morphine Sulfate 4 mg 11/24/17 19:28 Morphine Sulfate IVPUSH Q6H PRN PAIN LEVEL 7 - 10 Oxycodone HCl 5 mg 11/25/17 13:06 Roxicodone - PO Q4H PRN PAIN 4-6 ASSESSMENT/PLAN: This is a 52 year old man with a history of hyperlipidemia, L5-S1 spondylolisthesis, L5-S1 decompression/fusion/instrumentation on 11/08/17 who presented to the ED with back pain, fever, and chills. 1. Severe sepsis secondary to post-op wound infection, possible paraspinal abscess - Afebrile, WBC improved - s/p bedside needle aspiration by Dr. Francis 11/23 - s/p CT-guided drainage by IR 11/24 - Continue Zosyn - Vancomycin discontinued - Blood cultures negative - Wound culture growing group B Strep 2. L5-S1 spondylolisthesis, s/p decompression, fusion and instrumentation on 11/08 3. Hypernatremia - Discontinue IV NS 4. Hyperlipidemia - On no medication 5. Morbid obesity with BMI 41.3 Visit type - Emergency Visit Emergency Visit: Yes ED Registration Date: 11/22/17 Care time: The patient presented to the Emergency Department on the above date and was hospitalized for further evaluation of their emergent condition. - New Patient This patient is new to me today: No - Critical Care Critical Care patient: No - Discharge Referral Referred to [facility] No
--- NOTE | 2017-11-26 10:27 | PN ---
Progress Note (short form) - Note Progress Note: Surgery Patient being followed for infection s/p Lumbar fusion. Patient states he is feeling much better but still having pain in his left foot and ankle. he states the pain began @ one week ago. He denies any injury associated with the onset or previous injury to the area. Vital Signs Temp 98.7 F 11/26/17 08:18 Pulse 75 11/26/17 08:18 Resp 18 11/26/17 08:18 BP 117/68 11/26/17 08:18 Pulse Ox 100 11/25/17 21:00 Intake & Output 11/25/17 11/25/17 11/26/17 11:59 23:59 11:59 Intake Total 6568 737 5629 Output Total 5 540 1485 Balance 1715 360 -285 Weight 225 lb 9.6 oz Intake: IV 0180 955 0737 Normal Saline - 1,000 ml 5286 747 2795 @ 100 mls/hr IV ASDIR VALENTIN Rx#:[id number] IVPB 100 100 Oral 420 400 Output: Drainage 5 40 10 EDUARDO DRAIN 5 40 10 Urine 500 1475 Void 500 1475 Other: Voiding Method Urinal Urinal Urinal # Unmeasured Voids Void 2 Bowel Movement No No Weight Measurement [facility], BMP 11/26/17 06:00 11/26/17 06:00 Doppler of LLE: no evidence of DVT Microbiology 11/22/17 22:25 Blood - Peripheral Venous Blood Culture - Preliminary NO GROWTH OBTAINED AFTER 72 HOURS, INCUBATION TO CONTINUE FOR 2 DAYS. 11/22/17 22:25 Blood - Peripheral Venous Blood Culture - Preliminary NO GROWTH OBTAINED AFTER 72 HOURS, INCUBATION TO CONTINUE FOR 2 DAYS. 11/24/17 11:00 Abscess Gram Stain - Final 11/24/17 11:00 Abscess Wound Culture - Preliminary Strep Agalactiae Group B 11/24/17 11:00 Abscess Gram Stain - Final 11/24/17 11:00 Abscess Wound Culture - Preliminary NO GROWTH OBTAINED AFTER 24 HOURS INCUBATION, REINCUBATED. PE: A&Ox3,NAD unlabored resp on RA lumbar spine, dressings c/d/i and drain in good position draining minimal light ss d/c, surrounding tissue intact with no tracking erythema, edema collection or evidence of d/c. left LE with some mild diffuse edema over ankle and foot, limited ROM in dorsi/ plantar flexion but 5/5 strength, nontender over lateral or medial malleolus or across the tibial talar joint, no evidence of joint effusion no erythema or ecchymosis, focally ttp along peroneal tendon, cuboid and base of 5h metatarsal with mild ttp at lisfranc joint. No pain with resisted foot inversion or movement across the lisfranc joint. all compartments soft supple and non-tender with +2 DP pulse. Right LE compartments softm supple and non-tender with +2 DP pulse 5/5 dorsi/ plantar flexion <Katerine Rubio - Last Filed: 11/26/17 10:30> - Note Progress Note: Patient is more comfortable this AM Drain output is decreasing Awaiting final culture report <Justin Francis - Last Filed: 11/29/17 10:08> Problem List - Problems (1) Complication, postoperative infection Assessment/Plan: patient appears to be improving now with atraumatic left ankle and foot pain. 1) x-left ankle and foot r/o OA vs post traumatic changes 2) Dr Davenport to determine removal of drain and when appropriate to change form IV abx to oral 3) keep dressings clean and dry 4) DVT and GI prophylaxis evaluation and plan discussed with Dr Francis Code(s): T81.4XXA - INFECTION FOLLOWING A PROCEDURE, INITIAL ENCOUNTER <Katerine Rubio - Last Filed: 11/26/17 10:30>
--- NOTE | 2017-11-26 12:58 | PN ---
Progress Note, Physician History of Present Illness: stable doing well cx reports noted - Current Medication List Current Medications: Active Medications Acetaminophen (Tylenol -) 650 mg PO Q6H PRN PRN Reason: FEVER Acetaminophen (Tylenol -) 325 mg PO Q4H PRN PRN Reason: PAIN 4-6 Heparin Sodium (Porcine) (Heparin -) 5,000 unit SQ TID VALENTIN Last Admin: 11/26/17 05:52 Dose: 5,000 unit Piperacillin Sod/Tazobactam (Sod 4.5 gm/ Dextrose) 100 mls @ 200 mls/hr IVPB Q8H-IV VALENTIN; Protocol Last Admin: 11/26/17 09:48 Dose: 200 mls/hr Morphine Sulfate (Morphine Sulfate) 4 mg IVPUSH Q6H PRN PRN Reason: PAIN LEVEL 7 - 10 Oxycodone HCl (Roxicodone -) 5 mg PO Q4H PRN PRN Reason: PAIN 4-6 - Objective Vital Signs: Vital Signs Temperature 98.7 F 11/26/17 08:18 Pulse Rate 75 11/26/17 08:18 Respiratory Rate 18 11/26/17 08:18 Blood Pressure 117/68 11/26/17 08:18 O2 Sat by Pulse Oximetry (%) 100 11/25/17 21:00 Constitutional: Yes: No Distress, Calm Neck: Yes: Supple, Trachea Midline Cardiovascular: Yes: Regular Rate and Rhythm Respiratory: Yes: Regular, CTA Bilaterally Gastrointestinal: Yes: Normal Bowel Sounds, Soft Musculoskeletal: Yes: WNL Extremities: Yes: Other Wound/Incision: Yes: Dressing Dry and Intact, Other (drainage tube present) Labs: CBC, BMP 11/26/17 06:00 11/26/17 06:00 INR, PTT INR 1.24 (0.83-1.09) H 11/24/17 05:30 Assessment/Plan r/o Paraspinal Abscess Sepsis Lactic Acidosis HTN Hyperlipidemia leukocytosis l5-s1 decompression fever plan if patient going home can change abx to clinda for another 7 days monitor drain amount mus decrease if it increases then will ahve to see
[2017-11-27] MEDS ORDERED: DEXTROSE 5%-WATER 100 ML IVPB ONE ×3 (01:45→17:11)
[2017-11-27] MEDS ORDERED: PIPERACILLIN/TAZOBACTAM 4.5 GM VIAL IVPB ONE ×3 (01:45→17:11)
[2017-11-27] MEDS: PIPERACILLIN/TAZOB 4.5 GM 4.5 GM in DEXTROSE 5%-WATER 100 ML IVPB SCH ×3 (02:11→17:38)
[2017-11-27] MEDS: HEPARIN NA (PORCINE) 5,000 UNITS/ML 1ML VIAL SQ SCH ×3 (06:19→21:31)
[2017-11-27 08:18] LABS: ANION GAP 8 MMOL/L (8-16); BLOOD UREA NITROGEN 9 mg/dL (7-18); CALCIUM 8.5 mg/dL (8.5-10.1); CHLORIDE 110 mmol/L (98-107); CO2 26 mmol/L (21-32); CREATININE 0.7 mg/dL (0.7-1.3); GLUCOSE,RANDOM 91 mg/dL (74-106); POTASSIUM 3.9 mmol/L (3.5-5.1); SODIUM 144 mmol/L (136-145)
--- NOTE | 2017-11-27 09:35 | PN ---
Progress Note (short form) - Note Progress Note: Subjective: The patient was seen and examined at the bedside, he has no complaints at this time Current Medications Generic Name Dose Route Start Last Admin Trade Name Lynnette PRN Reason Stop Dose Admin Acetaminophen 650 mg 11/24/17 19:28 Tylenol - PO Q6H PRN FEVER Acetaminophen 325 mg 11/25/17 13:06 Tylenol - PO Q4H PRN PAIN 4-6 Heparin Sodium (Porcine) 5,000 unit 11/24/17 22:00 11/27/17 06:19 Heparin - SQ 5,000 unit TID VALENTIN Administration Piperacillin Sod/Tazobactam 100 mls @ 200 mls/hr 11/25/17 02:00 11/27/17 02: 11 Sod 4.5 gm/ Dextrose IVPB 200 mls/hr Q8H-IV VALENTIN Administration Protocol Morphine Sulfate 4 mg 11/24/17 19:28 Morphine Sulfate IVPUSH Q6H PRN PAIN LEVEL 7 - 10 Oxycodone HCl 5 mg 11/25/17 13:06 11/26/17 22:33 Roxicodone - PO 5 mg Q4H PRN Administration PAIN 4-6 Objective: Vital Signs Period Temp Pulse Resp BP Sys/James Pulse Ox Last 24 Hr 98.2 F-98.7 F 77-89 20-20 112-137/62-72 Physical Exam: General: NAD, A&Ox3 Lungs: CTA bilaterally Heart: RRR, S1S2 Abd: Soft, non-tender, non-distended. Normoactive bowel sounds Skin: Back dressing x2 in place, c/d/i. EDUARDO drain in place Ext: 1+ B/l lower extremity pitting edema CBCD WBC 7.9 K/mm3 (4.0-10.0) 11/26/17 06:00 RBC 3.67 M/mm3 (4.00-5.60) L 11/26/17 06:00 Hgb 11.2 GM/dL (11.7-16.9) L 11/26/17 06:00 Hct 32.8 % (35.4-49) L 11/26/17 06:00 MCV 89.3 fl (80-96) 11/26/17 06:00 MCHC 34.3 g/dl (32.0-35.9) 11/26/17 06:00 RDW 13.3 % (11.9-15.9) 11/26/17 06:00 Plt Count 324 K/MM3 (134-434) 11/26/17 06:00 MPV 7.5 fl (7.5-11.1) 11/26/17 06:00 CMP Sodium 144 mmol/L (136-145) 11/27/17 06:30 Potassium 3.9 mmol/L (3.5-5.1) 11/27/17 06:30 Chloride 110 mmol/L (98-107) H 11/27/17 06:30 Carbon Dioxide 26 mmol/L (21-32) 11/27/17 06:30 Anion Gap 8 MMOL/L (8-16) 11/27/17 06:30 BUN 9 mg/dL (7-18) 11/27/17 06:30 Creatinine 0.7 mg/dL (0.7-1.3) 11/27/17 06:30 Creat Clearance w eGFR > 60 (>60) 11/27/17 06:30 Random Glucose 91 mg/dL (74-106) 11/27/17 06:30 Calcium 8.5 mg/dL (8.5-10.1) 11/27/17 06:30 Total Bilirubin 0.4 mg/dL (0.2-1.0) 11/26/17 06:00 AST 41 U/L (15-37) H D 11/26/17 06:00 ALT 55 U/L (12-78) D 11/26/17 06:00 Alkaline Phosphatase 74 U/L (45-117) D 11/26/17 06:00 Total Protein 6.3 g/dl (6.4-8.2) L 11/26/17 06:00 Albumin 3.2 g/dl (3.4-5.0) L 11/26/17 06:00 Microbiology 11/22/17 22:25 Blood - Peripheral Venous Blood Culture - Preliminary NO GROWTH OBTAINED AFTER 96 HOURS, INCUBATION TO CONTINUE FOR 1 DAYS. 11/22/17 22:25 Blood - Peripheral Venous Blood Culture - Preliminary NO GROWTH OBTAINED AFTER 96 HOURS, INCUBATION TO CONTINUE FOR 1 DAYS. 11/24/17 11:00 Abscess Gram Stain - Final 11/24/17 11:00 Abscess Wound Culture - Preliminary Strep Agalactiae Group B 11/24/17 11:00 Abscess Gram Stain - Final 11/24/17 11:00 Abscess Wound Culture - Final NO AEROBIC OR ANAEROBIC GROWTH OBTAINED. 11/22/17 22:20 Urine - Urine Clean Catch Urine Culture - Final NO GROWTH OBTAINED Imaging: Lumbar spine MRI: B/l posterior subcutaneous fluid collection left greater than right. The left collection likely represents an abscess communicating with small collection in the adjacent left posterior paraspinal muscle Lumbar spine CT: Bilateral posterior superficial tubular like collections that may represent serosanguineous fluid extending from lower L3 through upper S1 level. Cannot rule out superimposed infection Assessment: This is a 52 year old male with PMHx of hyperlipidemia, L5-S1 decompression/fusion/instrumentation on 11/08/17 who presented to the ED with back pain, fever to 103.9, chills. Plan: 1) Severe sepsis 2/2 paraspinal abscess - S/p CT guided drainage of left fluid collection at the surgical site - EDUARDO drain in place: 45ml output yesterday, serosangenous drainage - Wound cultures as above - Continue Zosyn, can switch to po abx per ID - Will need to be discharged with drain - Appreciate ID consult - Appreciate surgery consult 2) B/l lower extremity pitting edema - Patient reports he "always has swelling in my legs" - LLE doppler with no evidence of DVT 3) F/E/N: - Monitor electrolytes - Regular diet Visit type - Emergency Visit Emergency Visit: Yes ED Registration Date: 11/22/17 Care time: The patient presented to the Emergency Department on the above date and was hospitalized for further evaluation of their emergent condition. - New Patient This patient is new to me today: No - Critical Care Critical Care patient: No
[2017-11-27] MEDS ORDERED: PT OWN MED DRAWER 7, Y5N ONE (18:33)
[2017-11-28] MEDS ORDERED: DEXTROSE 5%-WATER 100 ML IVPB ONE ×3 (01:11→18:16)
[2017-11-28] MEDS ORDERED: PIPERACILLIN/TAZOBACTAM 4.5 GM VIAL IVPB ONE ×3 (01:11→18:15)
[2017-11-28] MEDS: PIPERACILLIN/TAZOB 4.5 GM 4.5 GM in DEXTROSE 5%-WATER 100 ML IVPB SCH ×3 (02:25→18:32)
[2017-11-28] MEDS: PIPERACILLIN/TAZOB 4.5 GM 4.5 GM/100 ML BAG IVPB SCH (07:07)
[2017-11-28] MEDS: HEPARIN NA (PORCINE) 5,000 UNITS/ML 1ML VIAL SQ SCH ×3 (07:08→22:08)
--- NOTE | 2017-11-28 09:30 | PN ---
Progress Note (short form) - Note Progress Note: Subjective: The patient was seen and examined at the bedside, he has no complaints at this time Current Medications Generic Name Dose Route Start Last Admin Trade Name Lynnette PRN Reason Stop Dose Admin Acetaminophen 650 mg 11/24/17 19:28 Tylenol - PO Q6H PRN FEVER Acetaminophen 325 mg 11/25/17 13:06 Tylenol - PO Q4H PRN PAIN 4-6 Heparin Sodium (Porcine) 5,000 unit 11/24/17 22:00 11/28/17 07:08 Heparin - SQ 5,000 unit TID VALENTIN Administration Piperacillin Sod/Tazobactam 100 mls @ 200 mls/hr 11/25/17 02:00 11/28/17 02: 25 Sod 4.5 gm/ Dextrose IVPB 200 mls/hr Q8H-IV VALENTIN Administration Protocol Oxycodone HCl 5 mg 11/25/17 13:06 11/26/17 22:33 Roxicodone - PO 5 mg Q4H PRN Administration PAIN 4-6 Objective: Vital Signs Period Temp Pulse Resp BP Sys/James Pulse Ox Last 24 Hr 98.2 F-98.6 F 71-78 18-18 112-126/62-74 98 Physical Exam: General: NAD, A&Ox3 Lungs: CTA bilaterally Heart: RRR, S1S2 Abd: Soft, non-tender, non-distended. Normoactive bowel sounds Skin: Back dressing x2 in place, c/d/i. EDUARDO drain in place Ext: 1+ B/l lower extremity pitting edema CBCD WBC 7.9 K/mm3 (4.0-10.0) 11/26/17 06:00 RBC 3.67 M/mm3 (4.00-5.60) L 11/26/17 06:00 Hgb 11.2 GM/dL (11.7-16.9) L 11/26/17 06:00 Hct 32.8 % (35.4-49) L 11/26/17 06:00 MCV 89.3 fl (80-96) 11/26/17 06:00 MCHC 34.3 g/dl (32.0-35.9) 11/26/17 06:00 RDW 13.3 % (11.9-15.9) 11/26/17 06:00 Plt Count 324 K/MM3 (134-434) 11/26/17 06:00 MPV 7.5 fl (7.5-11.1) 11/26/17 06:00 CMP Sodium 144 mmol/L (136-145) 11/27/17 06:30 Potassium 3.9 mmol/L (3.5-5.1) 11/27/17 06:30 Chloride 110 mmol/L (98-107) H 11/27/17 06:30 Carbon Dioxide 26 mmol/L (21-32) 11/27/17 06:30 Anion Gap 8 MMOL/L (8-16) 11/27/17 06:30 BUN 9 mg/dL (7-18) 11/27/17 06:30 Creatinine 0.7 mg/dL (0.7-1.3) 11/27/17 06:30 Creat Clearance w eGFR > 60 (>60) 11/27/17 06:30 Random Glucose 91 mg/dL (74-106) 11/27/17 06:30 Calcium 8.5 mg/dL (8.5-10.1) 11/27/17 06:30 Total Bilirubin 0.4 mg/dL (0.2-1.0) 11/26/17 06:00 AST 41 U/L (15-37) H D 11/26/17 06:00 ALT 55 U/L (12-78) D 11/26/17 06:00 Alkaline Phosphatase 74 U/L (45-117) D 11/26/17 06:00 Total Protein 6.3 g/dl (6.4-8.2) L 11/26/17 06:00 Albumin 3.2 g/dl (3.4-5.0) L 11/26/17 06:00 Microbiology 11/22/17 22:25 Blood - Peripheral Venous Blood Culture - Final NO GROWTH AFTER 5 DAYS INCUBATION 11/22/17 22:25 Blood - Peripheral Venous Blood Culture - Final NO GROWTH AFTER 5 DAYS INCUBATION 11/24/17 11:00 Abscess Gram Stain - Final 11/24/17 11:00 Abscess Wound Culture - Final Strep Agalactiae Group B 11/24/17 11:00 Abscess Gram Stain - Final 11/24/17 11:00 Abscess Wound Culture - Final NO AEROBIC OR ANAEROBIC GROWTH OBTAINED. 11/22/17 22:20 Urine - Urine Clean Catch Urine Culture - Final NO GROWTH OBTAINED Imaging: Lumbar spine MRI: B/l posterior subcutaneous fluid collection left greater than right. The left collection likely represents an abscess communicating with small collection in the adjacent left posterior paraspinal muscle Lumbar spine CT: Bilateral posterior superficial tubular like collections that may represent serosanguineous fluid extending from lower L3 through upper S1 level. Cannot rule out superimposed infection Assessment: This is a 52 year old male with PMHx of hyperlipidemia, L5-S1 decompression/fusion/instrumentation on 11/08/17 who presented to the ED with back pain, fever to 103.9, chills. Plan: 1) Severe sepsis 2/2 paraspinal abscess - S/p CT guided drainage of left fluid collection at the surgical site - EDUARDO drain in place: 40ml output yesterday, serosangenous drainage - Wound cultures as above - Continue Zosyn, can switch to po abx per ID (awaiting call back from Dr. Davenport regarding dosing of Clindamycin) - Will need to be discharged with drain - Appreciate ID consult - Appreciate surgery consult 2) B/l lower extremity pitting edema - Patient reports he "always has swelling in my legs" - LLE doppler with no evidence of DVT 3) F/E/N: - Monitor electrolytes - Regular diet Visit type - Emergency Visit Emergency Visit: Yes ED Registration Date: 11/22/17 Care time: The patient presented to the Emergency Department on the above date and was hospitalized for further evaluation of their emergent condition. - New Patient This patient is new to me today: No - Critical Care Critical Care patient: No
--- NOTE | 2017-11-28 10:55 | PN ---
Progress Note, Physician History of Present Illness: doing well still draining afebrile stable - Current Medication List Current Medications: Active Medications Acetaminophen (Tylenol -) 650 mg PO Q6H PRN PRN Reason: FEVER Acetaminophen (Tylenol -) 325 mg PO Q4H PRN PRN Reason: PAIN 4-6 Heparin Sodium (Porcine) (Heparin -) 5,000 unit SQ TID VALENTIN Last Admin: 11/28/17 07:08 Dose: 5,000 unit Piperacillin Sod/Tazobactam (Sod 4.5 gm/ Dextrose) 100 mls @ 200 mls/hr IVPB Q8H-IV VALENTIN; Protocol Last Admin: 11/28/17 02:25 Dose: 200 mls/hr Oxycodone HCl (Roxicodone -) 5 mg PO Q4H PRN PRN Reason: PAIN 4-6 Last Admin: 11/26/17 22:33 Dose: 5 mg - Objective Vital Signs: Vital Signs Temperature 98.5 F 11/28/17 10:29 Pulse Rate 77 11/28/17 10:29 Respiratory Rate 16 11/28/17 10:29 Blood Pressure 117/68 11/28/17 10:29 O2 Sat by Pulse Oximetry (%) 98 11/27/17 21:00 Constitutional: Yes: No Distress, Calm Cardiovascular: Yes: Regular Rate and Rhythm Respiratory: Yes: Regular, CTA Bilaterally Gastrointestinal: Yes: Normal Bowel Sounds, Soft Musculoskeletal: Yes: WNL Extremities: Yes: WNL Wound/Incision: Yes: Dressing Dry and Intact, Other (drain in place) Neurological: Yes: Alert, Oriented Psychiatric: Yes: Alert, Oriented Labs: CBC, BMP 11/26/17 06:00 11/27/17 06:30 INR, PTT INR 1.24 (0.83-1.09) H 11/24/17 05:30 Assessment/Plan r/o Paraspinal Abscess Sepsis Lactic Acidosis HTN Hyperlipidemia leukocytosis l5-s1 decompression fever plan if patient going home can change abx to clinda for another 7 days monitor drain amount must decrease if it increases then will ahve to see and redo imaging studies
--- NOTE | 2017-11-28 12:41 | DS ---
Physical Examination Vital Signs: Vital Signs Temperature 98.5 F 11/28/17 10:29 Pulse Rate 77 11/28/17 10:29 Respiratory Rate 16 11/28/17 10:29 Blood Pressure 117/68 11/28/17 10:29 O2 Sat by Pulse Oximetry (%) 98 11/27/17 21:00 Findings/Remarks: Physical Exam: General: NAD, A&Ox3 Lungs: CTA bilaterally Heart: RRR, S1S2 Abd: Soft, non-tender, non-distended. Normoactive bowel sounds Skin: Back dressing x2 in place, c/d/i. EDUARDO drain in place Ext: 1+ B/l lower extremity pitting edema Labs: CBC, BMP 11/26/17 06:00 11/27/17 06:30 Discharge Summary Reason For Visit: FEVER, PAIN POST SPINAL FUSION SURGERY Current Active Problems Cellulitis of back (Acute) Complication, postoperative infection (Acute) Sepsis (Acute) Hospital Course: This is a 52 year old male with PMHx of hyperlipidemia, L5-S1 decompression/ fusion/instrumentation on 11/08/17 who presented to the ED with back pain, fever to 103.9, chills. Plan: 1) Severe sepsis 2/2 paraspinal abscess - S/p CT guided drainage of left fluid collection at the surgical site - EDUARDO drain in place: 40ml output yesterday, serosangenous drainage - Wound cultures as above - Discharged on Clindamycin 300mg po tid - Will need to be discharged with drain - Appreciate ID consult - Appreciate surgery consult 2) B/l lower extremity pitting edema - Patient reports he "always has swelling in my legs" - LLE doppler with no evidence of DVT Discussed discharge with Dr. Davenport Discussed discharge with patient. He states he would like to go home. He reports his was taught how to drain his drains. Instructed the patient to monitor drain output daily and records all measurements. Follow-up with infectious disease and surgery for recommendations when the drains are to be removed. Condition: Improved - Instructions Diet, Activity, Other Instructions: Please return to the ED with new, persistent, or worsening symptoms. Please follow-up with your providers as indicated. Discharge instructions per your surgeon: Dry sterile dressing changes daily. Referrals: Petty Davenport MD [Staff Physician] - (Please follow-up with Dr. Davenport within 3-5 days for further management of your infection.) Justin Francis MD [Staff Physician] - (Please follow-up with Dr. Francis (surgery ) within 1-2 days for further management of your infection and to assess when your drain can be removed) Disposition: HOME - Home Medications Comprehensive Discharge Medication List: Ambulatory Orders Hydrocodone/Acetaminophen [Vicodin 5-300 mg Tablet] 1 each PO Q4H PRN #30 tablet MDD 6 11/08/17 Acetaminophen [Tylenol .Regular Strength -] 325 mg PO Q4H PRN tablet 11/28/17 Clindamycin HCl 300 mg PO Q8H #21 capsule 11/28/17 This patient is new to me today: No Emergency Visit: Yes ED Registration Date: 11/22/17 Care time: The patient presented to the Emergency Department on the above date and was hospitalized for further evaluation of their emergent condition. Critical Care patient: No - Discharge Referral Referred to [facility] No
[2017-11-29] MEDS ORDERED: DEXTROSE 5%-WATER 100 ML IVPB ONE ×2 (01:24→10:00)
[2017-11-29] MEDS ORDERED: PIPERACILLIN/TAZOBACTAM 4.5 GM VIAL IVPB ONE ×2 (01:24→09:59)
[2017-11-29] MEDS: PIPERACILLIN/TAZOB 4.5 GM 4.5 GM in DEXTROSE 5%-WATER 100 ML IVPB SCH ×2 (02:45→10:04)
[2017-11-29] MEDS: HEPARIN NA (PORCINE) 5,000 UNITS/ML 1ML VIAL SQ SCH ×2 (06:20→15:11)
--- NOTE | 2017-11-29 11:42 | PN ---
Progress Note (short form) - Note Progress Note: Subjective: The patient was seen and examined at the bedside, patient was discharged yesterday but he appealed his discharge Current Medications Generic Name Dose Route Start Last Admin Trade Name Lynnette PRN Reason Stop Dose Admin Acetaminophen 650 mg 11/24/17 19:28 Tylenol - PO Q6H PRN FEVER Acetaminophen 325 mg 11/25/17 13:06 Tylenol - PO Q4H PRN PAIN 4-6 Heparin Sodium (Porcine) 5,000 unit 11/24/17 22:00 11/29/17 06:20 Heparin - SQ 5,000 unit TID VALENTIN Administration Piperacillin Sod/Tazobactam 100 mls @ 200 mls/hr 11/25/17 02:00 11/29/17 10: 04 Sod 4.5 gm/ Dextrose IVPB 200 mls/hr Q8H-IV VALENTIN Administration Protocol Objective: Vital Signs Period Temp Pulse Resp BP Sys/James Pulse Ox Last 24 Hr 98.2 F-99.0 F 71-85 16-18 104-112/56-62 98 Physical Exam: General: NAD, A&Ox3 Lungs: CTA bilaterally Heart: RRR, S1S2 Abd: Soft, non-tender, non-distended. Normoactive bowel sounds Skin: Back dressing x2 in place, c/d/i. EDUARDO drain in place Ext: 1+ B/l lower extremity pitting edema CBCD WBC 7.9 K/mm3 (4.0-10.0) 11/26/17 06:00 RBC 3.67 M/mm3 (4.00-5.60) L 11/26/17 06:00 Hgb 11.2 GM/dL (11.7-16.9) L 11/26/17 06:00 Hct 32.8 % (35.4-49) L 11/26/17 06:00 MCV 89.3 fl (80-96) 11/26/17 06:00 MCHC 34.3 g/dl (32.0-35.9) 11/26/17 06:00 RDW 13.3 % (11.9-15.9) 11/26/17 06:00 Plt Count 324 K/MM3 (134-434) 11/26/17 06:00 MPV 7.5 fl (7.5-11.1) 11/26/17 06:00 CMP Sodium 144 mmol/L (136-145) 11/27/17 06:30 Potassium 3.9 mmol/L (3.5-5.1) 11/27/17 06:30 Chloride 110 mmol/L (98-107) H 11/27/17 06:30 Carbon Dioxide 26 mmol/L (21-32) 11/27/17 06:30 Anion Gap 8 MMOL/L (8-16) 11/27/17 06:30 BUN 9 mg/dL (7-18) 11/27/17 06:30 Creatinine 0.7 mg/dL (0.7-1.3) 11/27/17 06:30 Creat Clearance w eGFR > 60 (>60) 11/27/17 06:30 Random Glucose 91 mg/dL (74-106) 11/27/17 06:30 Calcium 8.5 mg/dL (8.5-10.1) 11/27/17 06:30 Total Bilirubin 0.4 mg/dL (0.2-1.0) 11/26/17 06:00 AST 41 U/L (15-37) H D 11/26/17 06:00 ALT 55 U/L (12-78) D 11/26/17 06:00 Alkaline Phosphatase 74 U/L (45-117) D 11/26/17 06:00 Total Protein 6.3 g/dl (6.4-8.2) L 11/26/17 06:00 Albumin 3.2 g/dl (3.4-5.0) L 11/26/17 06:00 Microbiology 11/22/17 22:25 Blood - Peripheral Venous Blood Culture - Final NO GROWTH AFTER 5 DAYS INCUBATION 11/22/17 22:25 Blood - Peripheral Venous Blood Culture - Final NO GROWTH AFTER 5 DAYS INCUBATION 11/24/17 11:00 Abscess Gram Stain - Final 11/24/17 11:00 Abscess Wound Culture - Final Strep Agalactiae Group B 11/24/17 11:00 Abscess Gram Stain - Final 11/24/17 11:00 Abscess Wound Culture - Final NO AEROBIC OR ANAEROBIC GROWTH OBTAINED. 11/22/17 22:20 Urine - Urine Clean Catch Urine Culture - Final NO GROWTH OBTAINED Imaging: Lumbar spine MRI: B/l posterior subcutaneous fluid collection left greater than right. The left collection likely represents an abscess communicating with small collection in the adjacent left posterior paraspinal muscle Lumbar spine CT: Bilateral posterior superficial tubular like collections that may represent serosanguineous fluid extending from lower L3 through upper S1 level. Cannot rule out superimposed infection Assessment: This is a 52 year old male with PMHx of hyperlipidemia, L5-S1 decompression/fusion/instrumentation on 11/08/17 who presented to the ED with back pain, fever to 103.9, chills. Plan: 1) Severe sepsis 2/2 paraspinal abscess - S/p CT guided drainage of left fluid collection at the surgical site - EDUARDO drain to be removed today per Dr. Francis - Wound cultures as above - Abx switched to Clindamycin 300mg po tid per ID - Appreciate ID consult - Appreciate surgery consult 2) B/l lower extremity pitting edema - Patient reports he "always has swelling in my legs" - LLE doppler with no evidence of DVT 3) F/E/N: - Monitor electrolytes - Regular diet 4) The patient appealed his discharge, awaiting decision. For drain removal with IR today. Visit type - Emergency Visit Emergency Visit: Yes ED Registration Date: 11/22/17 Care time: The patient presented to the Emergency Department on the above date and was hospitalized for further evaluation of their emergent condition. - New Patient This patient is new to me today: No - Critical Care Critical Care patient: No
--- NOTE | 2017-11-29 12:18 | PN ---
Progress Note (short form) - Note Progress Note: surgery Asked by Dr Francsi to pull Drain, Dr Davenport agrees and medicine team aware. Patient seen and examined at bedside with no complaints. States he is ready to go home this afternoon. The sutures are cut and the drain was removed from left lumbar paravertebral area with tip fully intact. Drain site clean and dry with no active drainage, pressure dressing applied. surgical sites well healed with scar tissue, surrounding tissue intact with no erythema, edema or evidence of collection. Problem List - Problems (1) Complication, postoperative infection Code(s): T81.4XXA - INFECTION FOLLOWING A PROCEDURE, INITIAL ENCOUNTER
--- NOTE | 2017-11-29 12:23 | PN ---
Progress Note, Physician History of Present Illness: patient stable no new issues no complaints - Current Medication List Current Medications: Active Medications Acetaminophen (Tylenol -) 650 mg PO Q6H PRN PRN Reason: FEVER Acetaminophen (Tylenol -) 325 mg PO Q4H PRN PRN Reason: PAIN 4-6 Clindamycin HCl (Cleocin -) 300 mg PO TID [facility] Heparin Sodium (Porcine) (Heparin -) 5,000 unit SQ TID [facility] Last Admin: 11/29/17 06:20 Dose: 5,000 unit - Objective Vital Signs: Vital Signs Temperature 99.0 F 11/29/17 10:00 Pulse Rate 85 11/29/17 10:00 Respiratory Rate 16 11/29/17 10:00 Blood Pressure 108/56 11/29/17 10:00 O2 Sat by Pulse Oximetry (%) 98 11/28/17 21:00 Constitutional: Yes: No Distress, Calm Cardiovascular: Yes: Regular Rate and Rhythm Respiratory: Yes: Regular, CTA Bilaterally Gastrointestinal: Yes: Normal Bowel Sounds, Soft Musculoskeletal: Yes: WNL Extremities: Yes: WNL Wound/Incision: Yes: Dressing Dry and Intact Neurological: Yes: Alert, Oriented Psychiatric: Yes: Alert, Oriented Labs: CBC, BMP 11/26/17 06:00 11/27/17 06:30 INR, PTT INR 1.24 (0.83-1.09) H 11/24/17 05:30 Assessment/Plan r/o Paraspinal Abscess Sepsis Lactic Acidosis HTN Hyperlipidemia leukocytosis [id number] decompression fever plan continue oral abx for a week patient doing well rest as per the team and surgery
--- NOTE | 2017-11-29 12:52 | PN ---
Progress Note (short form) - Note Progress Note: Patient is comfortable this AM States that the pain that he had in his back and leg is diminished Drain output is minimal After discussion with ID drain has been removed Patient will be discharged with clindomycin Patient to F/U in my office in 7-10 days
[2017-11-29] MEDS ORDERED: CLINDAMYCIN HCL 150 MG CAPSULE (FP) PO SCH (14:00)
[2017-11-29 14:30] VITALS: BP 124/75; PULSE 96; TEMP 98.7
== END 2017-11-29 16:30 | disposition home or self-care (01) | DRG 721 ==
LOC: FER 21:23 → FM/S 23:35 → UNDOADMIN 11-23 00:54 → FM/S 11-23 00:54 → JICU 11-23 19:30 → J8W 11-25 15:25
PROVIDERS: ADMIT Internal Medicine; ATTEND Registered Nurse
PROC: 009U3ZZ Drainage of Spinal Canal, Percutaneous Approach (ICD-10-PCS; principal; 2017-11-24)
DX: T81.4XXA Infection following a procedure, initial encounter (principal); A41.9 Sepsis, unspecified organism; Y83.9 Surgical procedure, unspecified as the cause of abnormal reaction of the patient, or of later complication, without mention of misadventure at the time of the procedure; E87.2 Acidosis; E78.5 Hyperlipidemia, unspecified; D72.829 Elevated white blood cell count, unspecified; L03.312 Cellulitis of back [any part except buttock and flank]; M43.17 Spondylolisthesis, lumbosacral region; E87.0 Hyperosmolality and hypernatremia; E66.01 Morbid (severe) obesity due to excess calories; Z68.41 Body mass index [BMI] 40.0-44.9, adult; I10 Essential (primary) hypertension
CPT/HCPCS: 10030; 36415; 71045-TC-FY; 72131-TC; 72149-TC; 73610-TC-LT-FY; 73630-TC-LT; 77012-TC; 80048; 80053; 81003; 83605; 83735; 84100; 85025; 85027; 85610; 85651; 85730; 86140; 87040; 87070; 87086; 87186; 87205; 93005; 93971-TC; 99281-25; C1729; C1769; J0131; J1644; J7030